=== PATIENT | female | born 1965 | race African-American/Black ===

== ENCOUNTER 2016-03-31 07:46 | Day surgery (SDC) | payer OTHER ==
[2016-03-30 08:48] VITALS: BMI 31.6
[~2016-03-31 07:46] MED LIST: DEXAMETHASONE SOD PHOSPHATE 10 MG/ML 1 ML VIAL IV ONE; HEPARIN SODIUM,PORCINE 5,000 UNIT/ML 1 ML VIAL SQ ONE; MIDAZOLAM 2 MG/2 ML VIAL IV PRN; ONDANSETRON 4 MG/2 ML VIAL IVP ONE; SCOPOLAMINE 1.5MG/72HR PATCH TRANSDERM ONE; ceFAZolin 2 GM in SODIUM CHLORIDE 0.9% 100 ML IVPB ONE
[2016-03-31 08:08] VITALS: RESP 16
[2016-03-31] MEDS: LACTATED RINGERS 1,000 ML IV SCH ×2 (08:12→13:38)
[2016-03-31] MEDS ORDERED: LIDOCAINE 1% 20 ML VIAL (10MG/ML) FOR IV START INTRADERMA ONE (08:13)
--- NOTE | 2016-03-31 09:03 | P.GSHP ---
History of Present Illness H&P Date: 03/31/16 Chief Complaint: Cholecystitis Patient here today for laparoscopic cholecystectomy. She's been having increased pain in the right upper quadrant with radiation of the back. She had a recent HIDA scan last year that showed a low ejection fraction of 16%. She has had previous ultrasounds showing no evidence of gallstones. Denies any change in the color of her skin urine or stool. No rectal bleeding or melena. No elevation of her liver enzymes. She does have chronic reflux symptoms. Past Medical History Past Medical History: Asthma, GERD/Reflux, Hyperlipidemia, Hypertension, Mitral Valve Prolapse (MVP), Thyroid Disorder Additional Past Medical History / Comment(s): mitral valve regurg., RUQ pain History of Any Multi-Drug Resistant Organisms: None Reported Past Surgical History: Breast Surgery, Hysterectomy, Orthopedic Surgery, Tubal Ligation Additional Past Surgical History / Comment(s): CARLY, breast reduction, arthroscopy knee Past Anesthesia/Blood Transfusion Reactions: No Reported Reaction Past Psychological History: Anxiety Smoking Status: Never smoker Past Alcohol Use History: Occasional Past Drug Use History: None Reported - Past Family History Mother Family Medical History: CVA/TIA, Hypertension Medications and Allergies Home Medications Medication Instructions Recorded Confirmed Type ALPRAZolam [ALPRAZolam] 0.25 mg PO BID PRN 05/11/14 03/31/16 History Enalapril Maleate [Enalapril 20 mg PO HS 05/11/14 03/31/16 History Maleate] L.acidoph/B.long/L.plant/B.lac 1 each PO QAM 05/11/14 03/31/16 History [Probiotic Acidophilus Beads] Levothyroxine Sodium [Synthroid] 50 mcg PO QAM 05/11/14 03/31/16 History Metoprolol Succinate (ER) [Toprol 50 mg PO QAM 05/11/14 03/31/16 History Xl] Omeprazole [PriLOSEC] 20 mg PO AC-BRKFST 05/11/14 03/31/16 History amLODIPine BESYLATE [Amlodipine 10 mg PO QAM 05/11/14 03/31/16 History Besylate] traMADol HCL [Tramadol HCl] 50 mg PO Q6H PRN 05/11/14 03/31/16 History Albuterol Inhaler [Ventolin Hfa 1 - 2 puff INHALATION Q6HR PRN 03/31/15 History Inhaler] Rosuvastatin Calcium [Crestor] 40 mg PO HS 03/30/16 03/31/16 History Triamterene-Hctz 37.5-25Mg 1 cap PO DAILY PRN 03/30/16 03/31/16 History [Dyazide 37.5-25 Capsule] Allergies Allergy/AdvReac Type Severity Reaction Status Date / Time sulfamethoxazole Allergy Rash/Hives Verified 03/31/16 08:15 [From Bactrim] trimethoprim [From Bactrim] Allergy Rash/Hives Verified 03/31/16 08:15 Surgical - Exam Vital Signs Temp Pulse Resp BP Pulse Ox 98.1 F 81 16 122/76 100 03/31/16 08:06 03/31/16 08:06 03/31/16 08:06 03/31/16 08:06 03/31/16 08:06 Physical exam: General: Well-developed, well-nourished HEENT: Normocephalic, sclerae nonicteric Abdomen: Nontender, nondistended Extremities: No edema Neuro: Alert and oriented Assessment and Plan (1) Biliary dyskinesia Narrative/Plan: We'll proceed with lap scopic cholecystectomy. The risks of bleeding, infection , biloma formation, common bile duct injury, retained common bile duct stone, persistent abdominal pain, persistent diarrhea were discussed. She understands wished to proceed. Status: Acute
[2016-03-31] MEDS ORDERED: ceFAZolin 1,000 MG VIAL ONE ×2 (09:27→11:29)
[2016-03-31] MEDS ORDERED: GLYCOPYRROLATE 0.2 MG/ML 2 ML VIAL ONE ×2 (09:27→11:29)
[2016-03-31] MEDS ORDERED: SODIUM CHLORIDE 0.9% 100 ML BAG ONE ×2 (09:27→11:29)
[2016-03-31] MEDS ORDERED: ePHEDrine 50 MG/ML 1 ML AMP ONE (09:27)
[2016-03-31] MEDS ORDERED: NEOSTIGMINE 1 MG/ML 10 ML VIAL ONE ×2 (09:27→11:29)
[2016-03-31] MEDS ORDERED: PHENYLEPHRINE-0.9% NACL SYG 1 MG/10 ML SYRINGE ONE (09:27)
[2016-03-31] MEDS ORDERED: fentaNYL (PF) 50 MCG/ML 2 ML AMP ONE ×2 (09:27→11:29)
[2016-03-31] MEDS ORDERED: MIDAZOLAM 2 MG/2 ML VIAL ONE ×2 (09:27→11:29)
[2016-03-31] MEDS ORDERED: SUCCINYLCHOLINE CHLORIDE VIAL 200 MG/10 ML VIAL IV ONE (09:27)
[2016-03-31] MEDS ORDERED: LIDOCAINE 1% INJ 10MG/ML (20 ML MDV) ONE (09:27)
[2016-03-31] MEDS ORDERED: PROPOFOL 10 MG/ML 20 ML VIAL IV ONE ×2 (09:27→11:29)
[2016-03-31] MEDS ORDERED: BUPIVACAIN-EPI 0.25%-1:200,000 30 ML VIAL SQ ONE ×2 (09:47→10:15)
[2016-03-31] MEDS ORDERED: LACTATED RINGERS 1,000 ML IV ONE (10:07)
[2016-03-31] MEDS: HYDROmorphone 1 MG/ML 1 ML SYRINGE IVP PRN ×2 (10:35→10:46)
[2016-03-31 10:39] VITALS: TEMP 98
[2016-03-31] MEDS ORDERED: NALOXONE 0.4 MG/ML 1 ML VIAL IV PRN (10:51)
[2016-03-31] MEDS ORDERED: HYDROcodone/APAP 5-325MG 1 EACH TAB PO PRN (10:51)
--- NOTE | 2016-03-31 10:53 | P.PCN ---
Date of Procedure: 03/31/16 Procedure(s) Performed: PREOPERATIVE DIAGNOSIS: Biliary dyskinesia POSTOPERATIVE DIAGNOSIS: Same PROCEDURE: Laparoscopic cholecystectomy SURGEON: Tim EBL: Minimal see anesthesia record ANESTHESIA: Gen. COMPLICATIONS: None OPERATIVE PROCEDURE: The patient was brought and placed on the operating room table in the supine position. The patient was placed under general anesthesia at that time. The abdomen was prepped and draped in the usual sterile fashion. A small vertical infraumbilical incision was made. The fascia was grasped with the Juarez forceps. The fascia was retracted anteriorly. The Veress needle was advanced into the peritoneal cavity. The saline drop test was normal. Insufflation took place up to 15 mmHg. A 5 mm optical trocar was advanced and the peritoneal cavity. 2 additional 5 mm trochars were placed in the right upper quadrant under direct visualization. A 10 mm trocar was advanced into the epigastric incision site. The gallbladder was retracted superiorly and laterally. The peritoneum overlying the infundibulum was bluntly dissected. The patient's cystic duct was visualized. The junction between the cystic duct common and hepatic duct was identified. The cystic duct was then divided after placement of 3 10 mm clips on the patient's side and one on the specimen side. The cystic artery was identified and clipped as well. A small vessel was seen along the gallbladder fossa and clipped as well. The gallbladder was then removed from the liver bed using electrocautery. The gallbladder was then removed from the epigastric trocar site with an Endo Catch bag. The gallbladder fossa was irrigated with saline. There was no evidence of any bleeding or biliary drainage seen. The fascia at the 10 mm site was closed using the [place] 0 Vicryl technique. The trochars were then removed. The skin at all 4 sites was closed using a 4-0 Monocryl stitch. At the end of this procedure the sponge and needle counts were correct. DISPOSITION: Stable to the recovery room
[2016-03-31] MEDS ORDERED: KETOROLAC 30 MG/ML 1 ML VIAL IVP ONE (11:16)
[2016-03-31] MEDS ORDERED: VECURONIUM 10 MG VIAL IV ONE (11:29)
[2016-03-31] MEDS ORDERED: SUCCINYLCHOLINE CHLORIDE 100 MG/5 ML SYR IV ONE (11:29)
[2016-03-31 14:58] VITALS: BP 106/71; PULSE 86
== END 2016-03-31 15:04 | disposition home or self-care (01) ==
LOC: OR 07:46
PROVIDERS: ATTEND Surgery
DX: K81.1 Chronic cholecystitis (principal); I10 Essential (primary) hypertension; E78.5 Hyperlipidemia, unspecified; J45.909 Unspecified asthma, uncomplicated; K21.9 Gastro-esophageal reflux disease without esophagitis; I34.1 Nonrheumatic mitral (valve) prolapse; E07.9 Disorder of thyroid, unspecified; Z88.2 Allergy status to sulfonamides; Z79.899 Other long term (current) drug therapy; Z82.49 Family history of ischemic heart disease and other diseases of the circulatory system
CPT/HCPCS: 47562; 88304; J2250; J0330; J1644; J1100; J2710; J2405; J0690; J2001; J3010; J1885; J1170; J2370; J2704

== ENCOUNTER → 2016-06-28 | Outpatient (CLI) | payer OTHER ==
[2016-06-28 11:06] LABS: Calcium 9.7 mg/dL (8.4-10.2); Potassium 4.2 mmol/L (3.5-5.1); Total Bilirubin 0.5 mg/dL (0.2-1.3); Total Protein 7.7 g/dL (6.3-8.2)
== END ==
LOC: LABWHC1 10:06
PROVIDERS: ATTEND Internal Medicine Clinical Cardiac Electrophysiology
DX: E00-E89 Endocrine, nutritional and metabolic diseases (principal)
CPT/HCPCS: 36415; 80053; 80061

== ENCOUNTER → 2016-07-07 | Outpatient (CLI) | payer OTHER ==
--- NOTE | 2016-07-08 11:52 | US ---
EXAMINATION TYPE: US kidneys/renal and bladder DATE OF EXAM: 07/07/2016 4:08 PM COMPARISON: NONE CLINICAL HISTORY: Abn Kidney Function Test R94.4. EXAM MEASUREMENTS: Right Kidney: 9.5 x 4.9 x 4.2 cm Left Kidney: 9.5 x 5.5 x 4.5 cm Right Kidney: No hydronephrosis or masses seen Left Kidney: No hydronephrosis or masses seen Bladder: wnl There is no evidence for hydronephrosis at this point in time. No nephrolithiasis is seen. No cynthia s are identified. The urinary bladder is anechoic. Bilateral ureteral jets are seen. IMPRESSION: Renal sizes as described
== END | disposition home or self-care (01) ==
LOC: RADUSMAIN 15:36
PROVIDERS: ATTEND Internal Medicine Geriatric Medicine
DX: R94.4 Abnormal results of kidney function studies (principal)
CPT/HCPCS: 76770

== ENCOUNTER → 2016-07-24 | Outpatient (CLI) | payer OTHER ==
--- NOTE | 2016-07-24 15:02 | CT ---
EXAMINATION TYPE: CT chest wo con DATE OF EXAM: 07/24/2016 2:43 PM COMPARISON: NONE HISTORY: Patient complains of difficulty breathing. CT DLP: 254 mGycm. Automated Exposure Control for Dose Reduction was Utilized. TECHNIQUE: CT scan of the thorax is performed without IV contrast. High-resolution protocol with 10 mm sequences obtained in supine and prone technique. FINDINGS: LUNGS: The lungs are grossly clear, there is no concerning groundglass opacity or focal consolidation . There is minimal linear scarring in the left lower lobe centrally near diaphragm. No suspicious per ipheral reticulation or fibrosis is seen.. There is no pleural effusion or pneumothorax seen bilater ally. No large intraparenchymal mass. No significant bronchiectasis. MEDIASTINUM: Lack of IV contrast is noted to limit evaluation for mediastinal and especially hilar ad enopathy. There are no definitive greater than 1 cm hilar or mediastinal lymph nodes. No pericardia l effusion is seen. Heart size is upper limits of normal. Coronary artery calcification is noted. OTHER: There are rim calcified fat density structures in both breasts, right greater than left in siz e, could reflect large dystrophic calcifications from prior trauma or breast procedures. Cholecystectomy clips are noted. IMPRESSION: No significant acute or chronic pulmonary disease.
== END | disposition home or self-care (01) ==
LOC: RADCTMAIN 14:13
PROVIDERS: ATTEND Internal Medicine
DX: R06.02 Shortness of breath (principal); R05 Cough
CPT/HCPCS: 71250

== ENCOUNTER 2017-02-23 10:26 | Day surgery (SDC) | payer OTHER ==
[2017-02-23 11:36] VITALS: RESP 15; TEMP 97.8
[2017-02-23] MEDS ORDERED: LACTATED RINGERS 1,000 ML IV SCH (11:45)
--- NOTE | 2017-02-23 11:53 | P.GSHP ---
History of Present Illness H&P Date: 02/23/17 Chief Complaint: GERD, history of colon polyps 51-year-old female known to our service. She has complaints of chronic reflux. Last upper endoscopy 2014 showed gastritis and a small hernia. Unsure of the timing of her last colonoscopy. No bowel related complaints. Past Medical History Past Medical History: Asthma, GERD/Reflux, Hyperlipidemia, Hypertension, Mitral Valve Prolapse (MVP), Thyroid Disorder Additional Past Medical History / Comment(s): mitral valve regurg., RUQ pain History of Any Multi-Drug Resistant Organisms: None Reported Past Surgical History: Breast Surgery, Hysterectomy, Orthopedic Surgery, Tubal Ligation Additional Past Surgical History / Comment(s): CARLY, breast reduction, arthroscopy knee Past Anesthesia/Blood Transfusion Reactions: No Reported Reaction Past Psychological History: Anxiety Smoking Status: Never smoker Past Alcohol Use History: Occasional Past Drug Use History: None Reported - Past Family History Mother Family Medical History: CVA/TIA, Hypertension Medications and Allergies Home Medications Medication Instructions Recorded Confirmed Type ALPRAZolam [ALPRAZolam] 0.25 mg PO BID PRN 05/11/14 02/23/17 History Enalapril Maleate [Enalapril 20 mg PO HS 05/11/14 03/31/16 History Maleate] L.acidoph/B.long/L.plant/B.lac 1 each PO QA 05/11/14 02/23/17 History [Probiotic Acidophilus Beads] Levothyroxine Sodium [Synthroid] 50 mcg PO QAM 05/11/14 02/23/17 History Metoprolol Succinate (ER) [Toprol 50 mg PO QAM 05/11/14 02/23/17 History Xl] Omeprazole [PriLOSEC] 20 mg PO AC-BRKFST 05/11/14 02/23/17 History amLODIPine BESYLATE [Amlodipine 10 mg PO QAM 05/11/14 02/23/17 History Besylate] traMADol HCL [Tramadol HCl] 50 mg PO Q6H PRN 05/11/14 02/23/17 History Albuterol Inhaler [Ventolin Hfa 1 - 2 puff INHALATION Q6HR PRN 03/31/15 History Inhaler] Rosuvastatin Calcium [Crestor] 40 mg PO HS 03/30/16 02/23/17 History Triamterene-Hctz 37.5-25Mg 1 cap PO DAILY PRN 03/30/16 02/23/17 History [Dyazide 37.5-25 Capsule] Hydrocodone/Acetaminophen [[place] 1 - 2 each PO Q4HR PRN #30 tab 03/31/16 Rx 5-325] Enalapril [Vasotec] 10 mg PO DAILY 02/23/17 02/23/17 History amLODIPine [Norvasc] 5 mg PO DAILY 02/23/17 02/23/17 History Allergies Allergy/AdvReac Type Severity Reaction Status Date / Time sulfamethoxazole Allergy Rash/Hives Verified 02/23/17 11:44 [From Bactrim] trimethoprim [From Bactrim] Allergy Rash/Hives Verified 02/23/17 11:44 Surgical - Exam Vital Signs Temp Pulse Resp BP Pulse Ox 97.8 F 74 15 130/80 98 02/23/17 11:34 02/23/17 11:34 02/23/17 11:34 02/23/17 11:34 02/23/17 11:34 Physical exam: General: Well-developed, well-nourished HEENT: Normocephalic, sclerae nonicteric Abdomen: Nontender, nondistended Extremities: No edema Neuro: Alert and oriented Assessment and Plan (1) GERD (gastroesophageal reflux disease) Narrative/Plan: Will proceed with upper and lower endoscopy at this time. Current Visit: Yes Status: Acute Code(s): K21.9 - GASTRO-ESOPHAGEAL REFLUX DISEASE WITHOUT ESOPHAGITIS SNOMED Code(s): 371899632
[2017-02-23] MEDS ORDERED: LIDOCAINE 1% INJ 10MG/ML (20 ML MDV) ONE (12:00)
[2017-02-23] MEDS ORDERED: PROPOFOL 10 MG/ML 20 ML VIAL IV ONE (12:00)
[2017-02-23 12:45] VITALS: BP 113/80; PULSE 74
--- NOTE | 2017-03-22 13:50 | P.PCN ---
Date of Procedure: 02/23/17 Procedure(s) Performed: PREOPERATIVE DIAGNOSIS: GERD, screening, colon polyps POSTOPERATIVE DIAGNOSIS: Duodenitis, gastritis, hiatal hernia, diverticulosis PROCEDURE: 1. EGD with biopsy 2. Colonoscopy ANESTHESIA: MAC SURGEON: Surendra Dumont M.D. SPECIMENS: Duodenum, antrum ENDOSCOPIC PROCEDURE: The patient was on the endoscopy table in the left decubitus position. The Olympus gastroscope was inserted into the oropharynx and passed under direct visualization to the region of the third portion of the duodenum. From that point the scope was slowly withdrawn inspecting all surfaces carefully. There was mild duodenitis present. A biopsy of the duodenum took place. The pylorus was widely patent. The stomach was carefully inspected. There was mild gastritis present. A biopsy of the antrum took place to rule out H. pylori. Retroflexion revealed a small sliding hiatal hernia. The esophagus was then carefully examined. There were no neoplastic inflammatory or polypoid lesions throughout the visualized esophagus. The patient was kept on the endoscopy table in the left decubitus position. The Olympus colonoscope was inserted into the anus and passed under direct visualization to the base of the cecum. The appendiceal orifice was visualized. From that point the scope was slowly withdrawn inspecting all surfaces carefully. There were no neoplastic inflammatory or polypoid lesions throughout the cecum, ascending, transverse, descending, sigmoid and rectum. There was mild diverticulosis noted. Digital rectal examination was normal. The patient was taken to the recovery room in stable condition per anesthesia guidelines. RECOMMENDATIONS: Await biopsy results. Increase fiber. Follow-up colonoscopy 5 years.
== END 2017-02-23 13:09 | disposition home or self-care (01) ==
LOC: ORWHC2ENDO 10:26
PROVIDERS: ATTEND Surgery
DX: K21.9 Gastro-esophageal reflux disease without esophagitis (principal); Z12.11 Encounter for screening for malignant neoplasm of colon; Z86.010 Personal history of colon polyps; K57.30 Diverticulosis of large intestine without perforation or abscess without bleeding; K29.50 Unspecified chronic gastritis without bleeding; K44.9 Diaphragmatic hernia without obstruction or gangrene; K29.80 Duodenitis without bleeding; E07.9 Disorder of thyroid, unspecified; I34.1 Nonrheumatic mitral (valve) prolapse; J45.909 Unspecified asthma, uncomplicated; I10 Essential (primary) hypertension; E78.5 Hyperlipidemia, unspecified; F41.9 Anxiety disorder, unspecified; Z88.2 Allergy status to sulfonamides; Z79.899 Other long term (current) drug therapy; Z82.49 Family history of ischemic heart disease and other diseases of the circulatory system
CPT/HCPCS: 88305; 88342; 45378; 43239; J2001; J2704

== ENCOUNTER → 2017-04-19 | Outpatient (CLI) | payer OTHER ==
[2017-04-19 09:57] LABS: Basophils % (A) 1 %; Eosinophils # (A) 0.1 k/uL (0-0.7); Eosinophils % (A) 2 %; HCT 39.9 % (34.0-46.0); HGB 12.7 gm/dL (11.4-16.0); Lymphocytes # (A) 2.6 k/uL (1.0-4.8); Lymphocytes % (A) 51 %; MCH 30.2 pg (25.0-35.0); MCHC 31.8 g/dL (31.0-37.0); MCV 94.9 fL (80.0-100.0); Mean Platelet Volume 7.1; Monocytes # (A) 0.3 k/uL (0-1.0); Monocytes % (A) 7 %; Neutrophils % (A) 37 %; Platelet Count 278 k/uL (150-450); RBC 4.21 m/uL (3.80-5.40); RDW 13.4 % (11.5-15.5); WBC 5.2 k/uL (3.8-10.6)
[2017-04-19 10:02] LABS: Albumin 4.4 g/dL (3.5-5.0); Calcium 9.8 mg/dL (8.4-10.2); Potassium 4.1 mmol/L (3.5-5.1); Total Bilirubin 0.3 mg/dL (0.2-1.3); Total Protein 7.1 g/dL (6.3-8.2)
[2017-04-19 10:14] LABS: T4, Free (Free Thyroxine) 0.95 ng/dL (0.78-2.19)
[2017-04-19 10:16] LABS: Large Platelets Present
[2017-04-19 17:15] LABS: Hemoglobin A1C 5.8 % (4.0-6.0)
== END | disposition home or self-care (01) ==
LOC: LABWHC1 09:13
PROVIDERS: ATTEND Internal Medicine Geriatric Medicine
DX: E03.9 Hypothyroidism, unspecified (principal); E78.00 Pure hypercholesterolemia, unspecified; K21.9 Gastro-esophageal reflux disease without esophagitis; N18.9 Chronic kidney disease, unspecified; R73.9 Hyperglycemia, unspecified
CPT/HCPCS: 36415; 80053; 80061; 83036; 84439; 84443; 85025

== ENCOUNTER → 2017-05-11 | Outpatient (CLI) | payer OTHER ==
--- NOTE | 2017-05-11 18:01 | BD ---
EXAMINATION TYPE: MG DEXA axial skeleton. DATE OF EXAM: 05/11/2017 COMPARISON: NONE CLINICAL HISTORY: 52 YR OLD FEMALE....ICD-10 CODE: M81.0 AGE RELATED OSTEOPOROSIS. Height: 62 Weight: 203 FRAX RISK QUESTIONS: Alcohol (3 or more units per day): NO Family History (Parent hip fracture): NO Glucocorticoids (More than 3mos): NO (Ex: prednisone, prednisolone, methylprednisolone, dexamethasone, and hydrocortisone). History of Fracture in Adulthood: NO Secondary Osteoporosis: NO 1. Type 1 Diabetes: NO 2. Hyperthyroidism: NO 3. Menopause before 45: NO 4. Malnutrition: NO 5. Chronic liver disease: NO Rheumatoid Arthritis: NO Current Tobacco Use: NO RISK FACTORS HISTORY OF: Family History of Osteoporosis: YES, AUNT Active: YES Diet low in dairy products/other sources of calcium: YES A BIT LOW Postmenopausal woman: HYST AT 33 YRS OLD, EXPERIENCING MENOPAUSAL SYMPTOMS NOW Hyperparathyroidism: NO Adrenal Insufficiency: NO MEDICATIONS: Prednisone or other steroids: ASTHMA INHALER, HAS NOT USED IN VERY LONG TIME Thyroid Medications: YES, SYNTHROID How Lon-20 YRS Additional Medications: BP MEDS, XANAX PRN, PRILOSEC, CRESTOR, VIT D, Additional History: SLIGHT ASTHMA, CHECKING FOR DIABETES, HYPERTENSION, EXAM MEASUREMENTS: Bone mineral densitometry was performed using the Zopim System. Bone mineral density as measured about the Lumbar spine is: ----- L1-L4(G/cm2): 1.269 T Score Values are as follows: ----- L1: -0.3 ----- L2: 0.2 ----- L3: 1.2 ----- L4: 1.3 ----- L1-L4: 0.7 Bone mineral density FIRST BONE DENSITY TEST.......BASELINE STUDY Bone mineral density about the R hip (g/cm2): 1.078 Bone mineral density about the L hip (g/cm2): 1.016 T Score values are as follows: -----R Neck: -0.3 -----L Neck: -0.6 -----R Total: 0.6 -----L Total: 0.1 Bone mineral density BASELINE STUDY FRAX%S: THERE IS A 2.1% CHANCE OF A MAJOR OSTEOPOROTIC FX AND A 01.% FOR HIP FX....PROBABILITY OF FX IN 10 YRS TIME IMPRESSION: Normal (Values between +1 and -1 indicate normal bone mass). Consider repeating this study in 5 year s or sooner if there is some new clinical indication. NOTE: T-SCORE=SD OF THE YOUNG ADULT MEAN.
--- NOTE | 2017-05-14 11:08 | MM ---
Reason for exam: screening (asymptomatic). Last mammogram was performed 2 years and 5 months ago. History: Patient is postmenopausal. Reductions of both breasts, 2008. Physical Findings: A clinical breast exam by your physician is recommended on an annual basis and results should be correlated with mammographic findings. MG Screening Mammo w CAD Bilateral CC and MLO view(s) were taken. Prior study comparison: December 18, 2014, bilateral MG screening mammo w CAD. October 22, 2012, mammogram, performed at [facility]. The breast tissue is almost entirely fat. Finding: There are typically benign round, regional and grouped calcifications in the left breast. There is no discrete abnormality. Large dystrophic calcifications bilaterally. ASSESSMENT: Benign, BI-RAD 2 RECOMMENDATION: Routine screening mammogram of both breasts in 1 year.
== END | disposition home or self-care (01) ==
LOC: RADMAMWWP 07:21
PROVIDERS: ATTEND Internal Medicine Geriatric Medicine
DX: Z12.31 Encounter for screening mammogram for malignant neoplasm of breast (principal); M81.0 Age-related osteoporosis without current pathological fracture
CPT/HCPCS: 77067; 77080

== ENCOUNTER → 2017-06-15 | Outpatient (CLI) | payer OTHER ==
[2017-06-15 09:04] LABS: ALT 26 U/L (9-52); AST 25 U/L (14-36); Albumin 4.2 g/dL (3.5-5.0); Alkaline Phosphatase 101 U/L (38-126); Anion Gap 13 mmol/L; Blood Urea Nitrogen 9 mg/dL (7-17); Carbon Dioxide 26 mmol/L (22-30); Chloride 107 mmol/L (98-107); Glucose 93 mg/dL (74-99); Potassium 3.9 mmol/L (3.5-5.1); Sodium 146 mmol/L (137-145); Total Bilirubin 0.4 mg/dL (0.2-1.3)
[2017-06-15 10:06] LABS: Creatinine,Urine Random 281.1 mg/dL
== END ==
LOC: LABWHC1 08:28
PROVIDERS: ATTEND Nurse Practitioner Family
DX: N17.9 Acute kidney failure, unspecified (principal)
CPT/HCPCS: 36415; 80053; 82570; 84156

== ENCOUNTER 2018-11-08 07:53 | Emergency (ER) | payer OTHER ==
[2018-11-08 08:30] LABS: Amorphous Sediment,Urine Rare /hpf; Appearance,Urine Cloudy (Clear); Bacteria,Urine Occasional /hpf; Bilirubin,Urine Negative (Negative); Blood,Urine Moderate (Negative); Color,Urine Yellow; Glucose,Urine (UA) Negative (Negative); Ketones,Urine Negative (Negative); Leukocyte Esterase,Urine Negative (Negative); Mucus,Urine Occasional /hpf; Nitrite,Urine Negative (Negative); PH, Urine 5.5 (5.0-8.0); Protein,Urine 1+ (Negative); RBC,Urine 3 /hpf (0-5); Specific Gravity,Urine 1.023 (1.001-1.035); Squamous Epithelial Cell,Urine 8 /hpf (0-4); Urobilinogen,Urine <2.0 mg/dL (<2.0); WBC,Urine 1 /hpf (0-5)
[2018-11-08] MEDS ORDERED: KETOROLAC 30 MG/ML 1 ML VIAL IVP STA (08:34)
[2018-11-08] MEDS ORDERED: SODIUM CHLORIDE 0.9% 500 ML 500 ML IV STA (08:34)
[2018-11-08] MEDS ORDERED: ASPIRIN 81 MG PO STA (08:42)
[2018-11-08 09:24] LABS: Basophils % (A) 1 %; Eosinophils # (A) 0.2 k/uL (0-0.7); Eosinophils % (A) 3 %; HCT 40.4 % (34.0-46.0); HGB 13.3 gm/dL (11.4-16.0); Lymphocytes # (A) 1.6 k/uL (1.0-4.8); Lymphocytes % (A) 22 %; MCHC 32.8 g/dL (31.0-37.0); MCV 91.3 fL (80.0-100.0); Mean Platelet Volume 7.4; Monocytes # (A) 0.5 k/uL (0-1.0); Monocytes % (A) 7 %; Neutrophils # (A) 4.8 k/uL (1.3-7.7); Neutrophils % (A) 66 %; Platelet Count 250 k/uL (150-450); RBC 4.42 m/uL (3.80-5.40); RDW 15.1 % (11.5-15.5); WBC 7.2 k/uL (3.8-10.6)
--- NOTE | 2018-11-08 09:27 | ED ---
General Adult HPI - General Chief complaint: Urogenital Stated complaint: Infection Time Seen by Provider: 11/08/18 08:00 Source: patient, RN notes reviewed Mode of arrival: ambulatory Limitations: no limitations - History of Present Illness Initial comments: This is a 53-year-old female presents emergency Department complaining of right lower quadrant abdominal pain and some urinary frequency. Patient states it started a couple days ago and it seems to be progressing. Patient states the pain is reproducible with palpation. Patient states there is no dysuria chest urinary frequency. Patient denies any hematuria. Patient denies any history of kidney stone. Patient does not have her appendix out. Patient denies any nausea vomiting or diarrhea. Patient denies any chest pain. Patient denies any difficulty breathing. Patient denies any fever but states she does have the chills. - Related Data Home Medications Medication Instructions Recorded Confirmed ALPRAZolam 0.25 mg PO BID PRN 05/11/14 11/08/18 Levothyroxine Sodium [Synthroid] 50 mcg PO QAM 05/11/14 11/08/18 Metoprolol Succinate (ER) [Toprol 50 mg PO QAM 05/11/14 11/08/18 Xl] traMADol HCL [Tramadol HCl] 50 mg PO Q6H PRN 05/11/14 11/08/18 Albuterol Inhaler [Ventolin Hfa 1 - 2 puff INHALATION Q6HR PRN 03/31/15 11/08/18 Inhaler] Rosuvastatin Calcium [Crestor] 40 mg PO HS 03/30/16 11/08/18 Enalapril [Vasotec] 10 mg PO HS 02/23/17 11/08/18 Fluticasone Nasal [place] [Flonase 1 spray EA NOSTRIL DAILY PRN 11/08/18 11/08/18 Nasal [place]] Previous Rx's Medication Instructions Recorded Ketorolac [Toradol] 10 mg PO Q6HR #15 tab 11/08/18 Tamsulosin [Flomax] 0.4 mg PO DAILY #10 cap 11/08/18 Allergies Allergy/AdvReac Type Severity Reaction Status Date / Time sulfamethoxazole Allergy Rash/Hives Verified 11/08/18 09:02 [From Bactrim] trimethoprim [From Bactrim] Allergy Rash/Hives Verified 11/08/18 09:02 Review of Systems ROS Statement: Those systems with pertinent positive or pertinent negative responses have been documented in the HPI. ROS Other: All systems not noted in ROS Statement are negative. Past Medical History Past Medical History: Asthma, GERD/Reflux, Hyperlipidemia, Hypertension, Mitral Valve Prolapse (MVP), Thyroid Disorder Additional Past Medical History / Comment(s): mitral valve regurg., RUQ pain History of Any Multi-Drug Resistant Organisms: None Reported Past Surgical History: Breast Surgery, Hysterectomy, Orthopedic Surgery, Tubal Ligation Additional Past Surgical History / Comment(s): CARLY, breast reduction, arthroscopy knee Past Anesthesia/Blood Transfusion Reactions: No Reported Reaction Past Psychological History: Anxiety Smoking Status: Never smoker Past Alcohol Use History: Occasional Past Drug Use History: None Reported - Past Family History Mother Family Medical History: CVA/TIA, Hypertension General Exam - General Exam Comments Initial Comments: GENERAL: Patient is well-developed and well-nourished. Patient is nontoxic and well-hydr ated and is in mild distress. ENT: Neck is soft and supple. No significant lymphadenopathy is noted. Oropharynx is clear. Moist mucous membranes. Neck has full range of motion without eliciting any pain. EYES: The sclera were anicteric and conjunctiva were pink and moist. Extraocular movements were intact and pupils were equal round and reactive to light. Eyelids were unremarkable. PULMONARY: Unlabored respirations. Good breath sounds bilaterally. No audible rales rhonchi or wheezing was noted. CARDIOVASCULAR: There is a regular rate and rhythm without any murmurs gallops or rubs. ABDOMEN: Right lower abd pain. No rebound or guarding SKIN: Skin is clear with no lesions or rashes and otherwise unremarkable. NEUROLOGIC: Patient is alert and oriented x3. Cranial nerves II through XII are grossly intact. Motor and sensory are also intact. Normal speech, volume and content. Symmetrical smile. MUSCULOSKELETAL: Normal extremities with adequate strength and full range of motion. LYMPHATICS: No significant lymphadenopathy is noted PSYCHIATRIC: Normal psychiatric evaluation. Limitations: no limitations Course Vital Signs 11/08/18 11/08/18 11/08/18 08:00 09:02 10:30 Temperature 98 F Pulse Rate 80 75 65 Respiratory 16 18 20 Rate Blood Pressure 165/93 146/90 145/90 O2 Sat by Pulse 100 99 99 Oximetry Medical Decision Making - Medical Decision Making CT of the abdomen pelvis shows a kidney stone in the ureter with some hydroureter and hydronephrosis. - Lab Data Result diagrams: 11/08/18 09:05 11/08/18 09:05 Lab Results 11/08/18 11/08/18 11/08/18 Range/Units 08:10 09:05 09:05 WBC 7.2 (3.8-10.6) k/uL RBC 4.42 (3.80-5.40) m/uL Hgb 13.3 (11.4-16.0) gm/dL Hct 40.4 (34.0-46.0) % MCV 91.3 (80.0-100.0) fL MCH 30.0 (25.0-35.0) pg MCHC 32.8 (31.0-37.0) g/dL RDW 15.1 (11.5-15.5) % Plt Count 250 (150-450) k/uL Neutrophils % 66 % Lymphocytes % 22 % Monocytes % 7 % Eosinophils % 3 % Basophils % 1 % Neutrophils # 4.8 (1.3-7.7) k/uL Lymphocytes # 1.6 (1.0-4.8) k/uL Monocytes # 0.5 (0-1.0) k/uL Eosinophils # 0.2 (0-0.7) k/uL Basophils # 0.0 (0-0.2) k/uL Sodium 141 (137-145) mmol/L Potassium 3.9 (3.5-5.1) mmol/L Chloride 105 (98-107) mmol/L Carbon Dioxide 28 (22-30) mmol/L Anion Gap 8 mmol/L BUN 17 (7-17) mg/dL Creatinine 1.51 H (0.52-1.04) mg/dL Est GFR (CKD-EPI)AfAm 45 (>60 ml/min/1.73 sqM) Est GFR (CKD-EPI)NonAf 39 (>60 ml/min/1.73 sqM) Glucose 96 (74-99) mg/dL Calcium 9.6 (8.4-10.2) mg/dL Total Bilirubin 0.6 (0.2-1.3) mg/dL AST 30 (14-36) U/L ALT 29 (9-52) U/L Alkaline Phosphatase 100 (38-126) U/L Total Protein 7.4 (6.3-8.2) g/dL Albumin 4.4 (3.5-5.0) g/dL Amylase 84 (30-110) U/L Lipase 94 (23-300) U/L Urine Color Yellow Urine Appearance Cloudy H (Clear) Urine pH 5.5 (5.0-8.0) Ur Specific [place] 1.023 (1.001-1.035) Urine Protein 1+ H (Negative) Urine Glucose (UA) Negative (Negative) Urine Ketones Negative (Negative) Urine Blood Moderate H (Negative) Urine Nitrite Negative (Negative) Urine Bilirubin Negative (Negative) Urine Urobilinogen <2.0 (<2.0) mg/dL Ur Leukocyte Esterase Negative (Negative) Urine RBC 3 (0-5) /hpf Urine WBC 1 (0-5) /hpf Ur Squamous Epith Cells 8 H (0-4) /hpf Amorphous Sediment Rare H (None) /hpf Urine Bacteria Occasional H (None) /hpf Urine Mucus Occasional H (None) /hpf Disposition Clinical Impression: Kidney stone Disposition: HOME SELF-CARE Condition: Good Instructions (If sedation given, give patient instructions): Kidney Stones (ED) Prescriptions: Tamsulosin [Flomax] 0.4 mg PO DAILY #10 cap Ketorolac [Toradol] 10 mg PO Q6HR #15 tab Is patient prescribed a controlled substance at d/c from ED?: No Referrals: Keshawn Mireles MD [Primary Care Provider] - 1-2 days Time of Disposition: 12:12
[2018-11-08 09:34] LABS: Albumin 4.4 g/dL (3.5-5.0); Calcium 9.6 mg/dL (8.4-10.2); Potassium 3.9 mmol/L (3.5-5.1); Total Bilirubin 0.6 mg/dL (0.2-1.3); Total Protein 7.4 g/dL (6.3-8.2)
--- NOTE | 2018-11-08 10:31 | CT ---
EXAMINATION TYPE: CT abdomen pelvis wo con DATE OF EXAM: 11/08/2018 COMPARISON: None HISTORY: Pain CT DLP: 821 mGycm Automated exposure control for dose reduction was used. TECHNIQUE: Helical acquisition of images was performed from the lung bases through the pelvis. FINDINGS: LUNG BASES: No significant abnormality is appreciated. LIVER/GB: No significant abnormality is appreciated. Gallbladder surgically absent. PANCREAS: No significant abnormality is seen. SPLEEN: No significant abnormality is seen. ADRENALS: No significant abnormality is seen. KIDNEYS: Mild right-sided hydronephrosis, renal edema and perinephric stranding with right-sided hydr oureter from 0.5 cm calculus at the right UVJ. Additional tiny calculus is seen at the posterior aspe ct of the right mid ureter on axial image 45 measuring 3 mm. No left-sided renal or ureteral calculi. Low-attenuation structures within the bilateral kidneys with the largest seen in the inferior pole o n the right measuring 2.3 cm. FREE AIR: No free air is visualized RETROPERITONEAL ADENOPATHY: None visualized REPRODUCTIVE ORGANS: No significant abnormality is seen URINARY BLADDER: No significant abnormality is seen. PELVIC ADENOPATHY: None visualized. OSSEOUS STRUCTURES: No significant abnormality is seen. BOWEL: No significant abnormality is seen. IMPRESSION: 0.5 CM RIGHT UVJ CALCULUS CAUSING MILD OBSTRUCTIVE UROPATHY. ADDITIONAL TINY CALCULUS IS SEEN IN THE RIGHT MID URETER. SMALL BILATERAL RENAL CYSTS.
[2018-11-08 12:47] VITALS: BP 155/89; PULSE 70; RESP 18; TEMP 97.6
== END 2018-11-08 12:47 | disposition home or self-care (01) ==
LOC: EC 07:53
DX: N13.2 Hydronephrosis with renal and ureteral calculous obstruction (principal); J45.909 Unspecified asthma, uncomplicated; E78.5 Hyperlipidemia, unspecified; I10 Essential (primary) hypertension; E07.9 Disorder of thyroid, unspecified; Z79.899 Other long term (current) drug therapy; Z88.2 Allergy status to sulfonamides; Z98.51 Tubal ligation status
CPT/HCPCS: 36415; 80053; 82150; 83690; 85025; 81001; 74176; 99284; 96374; J1885

== ENCOUNTER → 2020-05-12 | Outpatient (CLI) | payer OTHER ==
[2020-05-12 16:12] LABS: HGB 13.3 g/dL (12.0-15.0); MCH 29.8 pg (27.0-32.0); MCHC 31.7 g/dL (32.0-37.0); Mean Platelet Volume 10.2 fL (9.5-12.2); Platelet Count 255 X 10*3/uL (140-440); RBC 4.47 X 10*6/uL (4.10-5.20); RDW 14.8 % (11.5-14.5); WBC 5.86 X 10*3/uL (4.50-10.00)
[2020-05-12 16:40] LABS: African American GFR (CKD) 64.5 (60.0-200.0); Albumin 4.9 g/dL (3.80-4.90); Albumin/Globulin Ratio 2.33 (1.60-3.17); Anion Gap 6.5 mmol/L (4.00-12.00); BUN/Creat Ratio 17.27 Ratio (12.00-20.00); Calcium 9.4 mg/dL (8.7-10.3); Carbon Dioxide 28.5 mmol/L (21.6-31.8); Chol/HDL Ratio 3.17; Globulin 2.1 g/dL (1.6-3.3); LDL Cholesterol,Calculated 118.8 mg/dL (0.0-131.0); Magnesium 2.2 mg/dL (1.5-2.4); Non-African American GFR(CKD) 55.7 (60.0-200.0); Potassium 4.4 mmol/L (3.5-5.5); Total Bilirubin 0.5 mg/dL (0.3-1.2); VLDL Calculation 20.2 mg/dL (5.00-40.00)
== END | disposition home or self-care (01) ==
LOC: LABWHC1 10:22
PROVIDERS: ATTEND Nurse Practitioner Adult Health
DX: E03.9 Hypothyroidism, unspecified (principal); I10 Essential (primary) hypertension; E78.5 Hyperlipidemia, unspecified
CPT/HCPCS: 36415; 80053; 80061; 83735; 84443; 84481; 85027

== ENCOUNTER → 2021-03-11 | Outpatient (CLI) | payer OTHER ==
--- NOTE | 2021-03-14 09:42 | MM ---
Reason for exam: screening (asymptomatic). Last mammogram was performed 3 years and 10 months ago. History: Patient is postmenopausal. Reductions of both breasts, 2008. Physical Findings: A clinical breast exam by your physician is recommended on an annual basis and results should be correlated with mammographic findings. MG 3D Screening Mammo W/Cad Bilateral CC and MLO view(s) were taken. Prior study comparison: May 11, 2017, bilateral MG screening mammo w CAD. December 18, 2014, bilateral MG screening mammo w CAD. There are scattered fibroglandular densities. Finding: There are large dystrophic calcifications in both breasts. There is a chronic nodularity bilaterally, medial aspect, greater in the left breast. There is no discrete abnormality. ASSESSMENT: Benign, BI-RAD 2 RECOMMENDATION: Routine screening mammogram of both breasts in 1 year.
== END | disposition home or self-care (01) ==
LOC: RADMAMWWP 09:30
PROVIDERS: ATTEND Internal Medicine Geriatric Medicine
DX: Z12.31 Encounter for screening mammogram for malignant neoplasm of breast (principal); Z78.0 Asymptomatic menopausal state
CPT/HCPCS: 77063; 77067

== ENCOUNTER 2023-03-13 08:59 | Day surgery (SDC) | payer OTHER ==
[~2023-03-13 08:59] MED LIST changes: -DEXAMETHASONE SOD PHOSPHATE 10 MG/ML 1 ML VIAL IV ONE; -HEPARIN SODIUM,PORCINE 5,000 UNIT/ML 1 ML VIAL SQ ONE; +LIDOCAINE 1% (10MG/ML) FOR IV START INTRADERMA PRN; -MIDAZOLAM 2 MG/2 ML VIAL IV PRN; -ONDANSETRON 4 MG/2 ML VIAL IVP ONE; -SCOPOLAMINE 1.5MG/72HR PATCH TRANSDERM ONE; -ceFAZolin 2 GM in SODIUM CHLORIDE 0.9% 100 ML IVPB ONE
[2023-03-13] MEDS: LACTATED RINGERS 1,000 ML IV SCH ×2 (09:32→09:40)
[2023-03-13 09:35] VITALS: TEMP 97.3
[2023-03-13 09:35] LABS: Glucose,Whole Blood 88 mg/dL (70-110)
[2023-03-13] MEDS ORDERED: LIDOCAINE 1% INJ 10MG/ML (20 ML MDV) ONE (09:42)
[2023-03-13] MEDS ORDERED: PROPOFOL 10 MG/ML 20 ML VIAL IV ONE (09:42)
--- NOTE | 2023-03-13 09:43 | P.GSHP ---
History of Present Illness H&P Date: 03/13/23 Chief Complaint: GERD 58-year-old female with history of chronic reflux symptoms. Patient was on omeprazole daily. She is now on Protonix daily. Even with her antiacids she is symptomatic at times. No dysphagia. Last EGD 6 years ago. She is also due for colonoscopy but this was not scheduled today. Past Medical History Past Medical History: Asthma, Diabetes Mellitus, GERD/Reflux, Hyperlipidemia, Hypertension, Mitral Valve Prolapse (MVP), Thyroid Disorder Additional Past Medical History / Comment(s): mitral valve regurg., gastritis & GERD over Thanksgiving, hx. of fast heart rate, borderline diabetic, had some kidney issues in the past related to meds but resolved after meds adjusted History of Any Multi-Drug Resistant Organisms: None Reported Past Surgical History: Breast Surgery, Hysterectomy, Orthopedic Surgery, Tubal Ligation Additional Past Surgical History / Comment(s): CARLY, breast reduction, arthroscopy knee Past Anesthesia/Blood Transfusion Reactions: No Reported Reaction Smoking Status: Never smoker - Past Family History Mother Family Medical History: CVA/TIA, Hypertension Medications and Allergies Home Medications Medication Instructions Recorded Confirmed Type ALPRAZolam 0.25 mg PO BID PRN 05/11/14 03/13/23 History Levothyroxine Sodium [Synthroid] 50 mcg PO QAM 05/11/14 03/13/23 History Metoprolol Succinate (ER) [Toprol 25 mg PO QAM 05/11/14 03/13/23 History Xl] traMADol HCL [Tramadol HCl] 50 mg PO Q6H PRN 05/11/14 03/13/23 History Albuterol Inhaler [Ventolin Hfa 1 - 2 puff INHALATION Q6HR PRN 03/31/15 03/13/23 History Inhaler] Rosuvastatin Calcium [Crestor] 40 mg PO HS 03/30/16 03/13/23 History Fluticasone Nasal [place] [Flonase 1 spray EA NOSTRIL DAILY PRN 11/08/18 03/13/23 History Nasal [place]] Ezetimibe [Zetia] 10 mg PO DAILY 03/08/23 03/13/23 History Pantoprazole [Protonix] 40 mg PO DAILY 03/08/23 03/13/23 History amLODIPine [Norvasc] 5 mg PO DAILY 03/08/23 03/13/23 History lisinopriL [Zestril] 20 mg PO BID 03/08/23 03/13/23 History Allergies Allergy/AdvReac Type Severity Reaction Status Date / Time sulfamethoxazole Allergy Rash/Hives Verified 03/13/23 09:23 [From Bactrim] trimethoprim [From Bactrim] Allergy Rash/Hives Verified 03/13/23 09:23 Surgical - Exam Vital Signs Temp Pulse BP Pulse Ox 97.3 F L 68 161/86 100 03/13/23 09:27 03/13/23 09:27 03/13/23 09:27 03/13/23 09:27 Physical exam: General: Well-developed, well-nourished HEENT: Normocephalic, sclerae nonicteric Abdomen: Nontender, nondistended Extremities: No edema Neuro: Alert and oriented Assessment and Plan (1) GERD (gastroesophageal reflux disease) Narrative/Plan: Will proceed with upper endoscopy Current Visit: No Status: Acute Code(s): K21.9 - GASTRO-ESOPHAGEAL REFLUX DISEASE WITHOUT ESOPHAGITIS SNOMED Code(s): 135779558
--- NOTE | 2023-03-13 09:53 | P.PCN ---
Date of Procedure: 03/13/23 Procedure(s) Performed: Preoperative Dx: GERD Postoperative Dx: Mild duodenitis, mild gastritis, small hiatal hernia Procedure: EGD with Bx Anesthesia: Sedation Endoscopist: Dr. Dumont Specimens: Duodenum, antrum Endoscopic Procedure: The patient was on the endoscopy table in the left decubitus position. The Olympus gastroscope was inserted into the oropharynx and passed under direct visualization to the region of the third portion of the duodenum. From that point the scope was slowly withdrawn inspecting all surfaces carefully. There was mild duodenitis present. A biopsy of the duodenum took place. The pylorus was widely patent. The stomach was carefully inspected. There was mild gastritis as well. A biopsy of the antrum took place to rule out H. pylori. Retroflexion revealed a small sliding hiatal hernia. The GE junction was present 1.5 cm above the diaphragmatic hiatus. There were no inflammatory changes present. The esophagus was then carefully examined. There were no neoplastic inflammatory or polypoid lesions throughout the visualized esophagus. The patient was then taken to the recovery room in stable condition per anesthesia guidelines. Recommendations: Biopsy results. Continue antiacid therapy. Recommend colonoscopy at some point given patient's history of colon polyps.
[2023-03-13 10:24] VITALS: BP 153/88; PULSE 99; RESP 16
== END 2023-03-13 10:36 | disposition home or self-care (01) ==
LOC: ORWHC2ENDO 08:59
PROVIDERS: ATTEND Surgery
DX: K29.50 Unspecified chronic gastritis without bleeding (principal); K29.80 Duodenitis without bleeding; K44.9 Diaphragmatic hernia without obstruction or gangrene; E11.9 Type 2 diabetes mellitus without complications; E78.5 Hyperlipidemia, unspecified; K21.9 Gastro-esophageal reflux disease without esophagitis; I10 Essential (primary) hypertension; I34.1 Nonrheumatic mitral (valve) prolapse; E07.9 Disorder of thyroid, unspecified; J45.909 Unspecified asthma, uncomplicated; Z79.890 Hormone replacement therapy; Z79.899 Other long term (current) drug therapy; Z88.1 Allergy status to other antibiotic agents; Z88.2 Allergy status to sulfonamides; Z79.51 Long term (current) use of inhaled steroids
CPT/HCPCS: 88305; 88342; 88341; 43239; J2001; J2704

== ENCOUNTER → 2023-04-06 | Outpatient (CLI) | payer OTHER ==
--- NOTE | 2023-04-09 16:54 | MM ---
Reason for Exam: Screening (asymptomatic). Last mammogram was performed 2 year(s) and 1 month(s) ago. Patient History: Menarche at age 10. First Full-Term at age 14. Hysterectomy at age 33. Postmenopausal. 2007, Bilateral Reduction. Risk Values: Jenny 5 year model risk: 1.4%. NCI Lifetime model risk: 6.9%. Prior Study Comparison: 12/18/2014 Bilateral Screening Mammogram, [facility]. 05/11/2017 Bilateral Screening Mammogram, [facility]. 03/11/2021 Bilateral Screening Mammogram, [facility]. Tissue Density: There are scattered fibroglandular densities. Findings: Analyzed By CAD. Bilateral reduction mammoplasty changes. Large area of fat necrosis calcifications are present on either side. Additional chronic bilateral low density nodularity. There is no suspicious group of microcalcifications or new suspicious mass in either breast. Overall Assessment: Benign, BI-RAD 2 Management: Screening Mammogram of both breasts in 1 year. . Patient should continue monthly self-breast exams. A clinical breast exam by your physician is recommended on an annual basis. This exam should not preclude additional follow-up of suspicious palpable abnormalities. Note on Jenny scores and lifetime risk: 1. A Jenny score greater than 3% is considered moderate risk. If this is the case, consider specialist referral to assess eligibility for a risk reducing agent. 2. If overall lifetime risk for the development of breast cancer is 20% or higher, the patient may qualify for future screening with alternating mammogram and breast MRI. Electronically signed and approved by: Armond Wynn M.D. Radiologist
== END | disposition home or self-care (01) ==
LOC: RADMAMWWP 09:28
PROVIDERS: ATTEND Internal Medicine Geriatric Medicine
DX: Z12.31 Encounter for screening mammogram for malignant neoplasm of breast (principal); Z78.0 Asymptomatic menopausal state
CPT/HCPCS: 77063; 77067

== ENCOUNTER → 2023-05-18 | Outpatient (CLI) | payer OTHER ==
--- NOTE | 2023-05-22 10:55 | PE ---
EXAMINATION TYPE: PET CT fusion skull to thigh DATE OF EXAM: 05/18/2023 COMPARISON: CT abdomen and pelvis 11/08/2018. No more recent prior CTs available at this location. Prior PET/CT: None HISTORY: Lymphoma, history of abdominal biopsy. TECHNIQUE: Following the intravenous administration of 9.5 mCi of F-18 FDG, whole body images are pe rformed from the skull base to the midthigh. Images are reviewed on the computer in the coronal, axi al, and sagittal planes. Reconstructed rotating images are created on independent workstation and re viewed on the computer. A localization and attenuation correction CT is performed in conjunction wi th the PET scan. DLP: 883.29 mGycm SCAN: Initial Blood glucose: 101 mg/dL Average Mediastinum SUV: 2.79 Average Liver SUV: 2.0 to FINDINGS: NECK: No abnormal uptake THORAX: No abnormal uptake ABDOMEN: No abnormal uptake. There are scattered small mesenteric lymph nodes within the mid abdomen with mild adjacent inflammato ry change within the mesentery. However, no abnormal uptake is identified within these lymph nodes. T hese appear SUV less than the background of the nearby small bowel loops. PELVIS: No abnormal uptake OSSEOUS STRUCTURES: No abnormal uptake LOCALIZATION CT: Large peripheral calcifications within the bilateral breasts. There is a cyst on the medial left kidney. There is been prior cholecystectomy. COMPARISON: 2019 CT is reviewed IMPRESSION: 1. Suspicious radiotracer uptake within lymphadenopathy to suggest lymphoma not clearly evident on e current examination. 2. Correlate with prior biopsy and laboratory results.
== END | disposition home or self-care (01) ==
LOC: RADPETMAIN 09:22
PROVIDERS: ATTEND Internal Medicine Hematology & Oncology
DX: C82.09 Follicular lymphoma grade I, extranodal and solid organ sites (principal)
CPT/HCPCS: 78815; A9552

== ENCOUNTER → 2023-09-18 | Outpatient (CLI) | payer OTHER | LOC: CPPFTMAIN 08:37 | PROVIDERS: ATTEND Internal Medicine Clinical Cardiac Electrophysiology | DX: R06.02 Shortness of breath (principal); Z88.2 Allergy status to sulfonamides; Z88.1 Allergy status to other antibiotic agents | CPT/HCPCS: 94060; 94726; 94729 ==

== ENCOUNTER 2023-10-20 16:12 | Inpatient (IN) | payer OTHER ==
[2023-10-20 16:50] LABS: Basophils % (A) 1 %; Eosinophils % (A) 0 %; HCT 40.4 % (34.0-46.0); HGB 13.1 gm/dL (11.4-16.0); Hypochromasia Slight; Lymphocytes # (A) 1.5 k/uL (1.0-4.8); Lymphocytes % (A) 35 %; MCH 30.4 pg (25.0-35.0); MCHC 32.5 g/dL (31.0-37.0); MCV 93.6 fL (80.0-100.0); Monocytes # (A) 0.5 k/uL (0-1.0); Monocytes % (A) 12 %; Neutrophils % (A) 49 %; Platelet Count 197 k/uL (150-450); RBC 4.31 m/uL (3.80-5.40); WBC 4.2 k/uL (3.8-10.6)
--- NOTE | 2023-10-20 16:57 | XR ---
EXAMINATION TYPE: XR chest 2V DATE OF EXAM: 10/20/2023 COMPARISON: NONE HISTORY: Shortness of breath TECHNIQUE: Frontal and lateral views of the chest are obtained. FINDINGS: Scattered senescent parenchymal changes noted. Hyperinflation compatible with COPD. No evidence for infiltrate. No evidence for atelectasis. Heart size is stable. Mediastinal structures are stable and grossly unremarkable. No evidence for hilar prominence. Degenerative changes dorsal spine. IMPRESSION: 1. No evidence for acute pulmonary disease.
[2023-10-20 17:03] LABS: ALT 34 U/L (4-34); AST 75 U/L (14-36); African American GFR (CKD) 57 (>60 ml/min/1.73 sqM); Albumin 4.1 g/dL (3.5-5.0); Alkaline Phosphatase 78 U/L (38-126); Anion Gap 6 mmol/L; Blood Urea Nitrogen 18 mg/dL (7-17); Carbon Dioxide 26 mmol/L (22-30); Chloride 107 mmol/L (98-107); Creatine Kinase 608 U/L (30-135); Glucose 163 mg/dL (74-99); Magnesium 2.1 mg/dL (1.6-2.3); Non-African American GFR(CKD) 50 (>60 ml/min/1.73 sqM); Potassium 3.5 mmol/L (3.5-5.1); Sodium 139 mmol/L (137-145); Total Bilirubin 0.7 mg/dL (0.2-1.3); Total Protein 6.7 g/dL (6.3-8.2)
[2023-10-20 17:10] LABS: Prothrombin Time 10.6 sec (10.0-12.5)
[2023-10-20 18:36] LABS: Appearance,Urine Cloudy (Clear); Bacteria,Urine Few /hpf; Bilirubin,Urine Negative (Negative); Blood,Urine Small (Negative); Color,Urine Yellow; Glucose,Urine (UA) Negative (Negative); Hyaline Casts,Urine 17 /lpf (0-2); Ketones,Urine 1+ (Negative); Leukocyte Esterase,Urine Large (Negative); Mucus,Urine Few /hpf; Nitrite,Urine Negative (Negative); PH, Urine 5.5 (5.0-8.0); Protein,Urine 1+ (Negative); RBC,Urine 3 /hpf (0-5); Specific Gravity,Urine 1.021 (1.001-1.035); Squamous Epithelial Cell,Urine 4 /hpf (0-4); Urobilinogen,Urine <2.0 mg/dL (<2.0); WBC,Urine 9 /hpf (0-5)
[2023-10-20] MEDS: SODIUM CHLORIDE 0.9% 1,000 ML IV STA (19:24)
--- NOTE | 2023-10-20 19:30 | ED ---
General Adult HPI - General Chief complaint: Syncope Stated complaint: Syncope Time Seen by Provider: 10/20/23 16:17 Source: patient, EMS, RN notes reviewed Mode of arrival: EMS Limitations: no limitations - History of Present Illness Initial comments: 58-year-old female who has a history of lymphoma which is currently being worked up and treated who was at a family gathering when she had a syncopal episode lasting about 2 minutes she was unresponsive for the period time family members were present patient woke up immediately after about 2 minutes. She complained of no palpitations no fevers chills nausea vomiting sweats no prior history of this. - Related Data Home Medications Medication Instructions Recorded Confirmed ALPRAZolam 0.25 mg PO BID PRN 05/11/14 03/13/23 Levothyroxine Sodium [Synthroid] 50 mcg PO QAM 05/11/14 03/13/23 Metoprolol Succinate (ER) [Toprol 25 mg PO QAM 05/11/14 03/13/23 Xl] traMADol HCL [Tramadol HCl] 50 mg PO Q6H PRN 05/11/14 03/13/23 Albuterol Inhaler [Ventolin Hfa 1 - 2 puff INHALATION Q6HR PRN 03/31/15 03/13/23 Inhaler] Rosuvastatin Calcium [Crestor] 40 mg PO HS 03/30/16 03/13/23 Fluticasone Nasal [place] [Flonase 1 spray EA NOSTRIL DAILY PRN 11/08/18 03/13/23 Nasal [place]] Ezetimibe [Zetia] 10 mg PO DAILY 03/08/23 03/13/23 Pantoprazole [Protonix] 40 mg PO DAILY 03/08/23 03/13/23 amLODIPine [Norvasc] 5 mg PO DAILY 03/08/23 03/13/23 lisinopriL [Zestril] 20 mg PO BID 03/08/23 03/13/23 Allergies Allergy/AdvReac Type Severity Reaction Status Date / Time sulfamethoxazole Allergy Rash/Hives Verified 03/13/23 09:23 [From Bactrim] trimethoprim [From Bactrim] Allergy Rash/Hives Verified 03/13/23 09:23 Review of Systems ROS Statement: Those systems with pertinent positive or pertinent negative responses have been documented in the HPI. ROS Other: All systems not noted in ROS Statement are negative. Past Medical History Past Medical History: Asthma, Diabetes Mellitus, GERD/Reflux, Hyperlipidemia, Hypertension, Mitral Valve Prolapse (MVP), Thyroid Disorder Additional Past Medical History / Comment(s): mitral valve regurg., gastritis & GERD over Thanksgiving, hx. of fast heart rate, borderline diabetic, had some kidney issues in the past related to meds but resolved after meds adjusted History of Any Multi-Drug Resistant Organisms: None Reported Past Surgical History: Breast Surgery, Hysterectomy, Orthopedic Surgery, Tubal Ligation Additional Past Surgical History / Comment(s): CARLY, breast reduction, arthroscopy knee Past Anesthesia/Blood Transfusion Reactions: No Reported Reaction Past Psychological History: Anxiety Smoking Status: Never smoker - Past Family History Mother Family Medical History: CVA/TIA, Hypertension General Exam - General Exam Comments Initial Comments: This is a well-developed well-nourished awake alert oriented x 4 female Limitations: no limitations General appearance: alert, in no apparent distress Head exam: Present: atraumatic, normocephalic, normal inspection Eye exam: Present: normal appearance, PERRL, EOMI. Absent: scleral icterus, conjunctival injection, periorbital swelling ENT exam: Present: normal exam, mucous membranes moist Neck exam: Present: normal inspection, full ROM, other (No JVD or bruits). Absent: tenderness, meningismus, lymphadenopathy Respiratory exam: Present: normal lung sounds bilaterally. Absent: respiratory distress, wheezes, rales, rhonchi, stridor Cardiovascular Exam: Present: regular rate, normal rhythm, normal heart sounds. Absent: systolic murmur, diastolic murmur, rubs, gallop, clicks GI/Abdominal exam: Present: soft, normal bowel sounds. Absent: distended, tenderness, guarding, rebound, rigid, bruit, pulsatile mass Extremities exam: Present: normal inspection, full ROM, normal capillary refill. Absent: tenderness, pedal edema, joint swelling, calf tenderness Back exam: Present: normal inspection Neurological exam: Present: alert, oriented X3, CN II-XII intact Psychiatric exam: Present: normal affect, normal mood Skin exam: Present: warm, dry, intact, normal color. Absent: rash Course Vital Signs 10/20/23 10/20/23 10/20/23 16:16 19:30 20:19 Temperature 98.3 F Pulse Rate 89 89 86 Respiratory 18 16 12 Rate Blood Pressure 109/55 153/77 145/72 O2 Sat by Pulse 97 97 98 Oximetry Medical Decision Making - Medical Decision Making Was pt. sent in by a medical professional or institution (, HA, SPOT MACHINE OPERATOR, urgent care, hospital, or prison...) When possible be specific @ -No Did you speak to anyone other than the patient for history (EMS, parent, family, police, friend...)? What history was obtained from this source @ -EMS personnel, family Did you review nursing and triage notes (agree or disagree)? Why? @ -I reviewed and agree with nursing and triage notes Were old charts reviewed (outside hosp., previous admission, EMS record, old EKG, old radiological studies, urgent care reports/EKG's, prison records)? Report findings @ -No old charts were reviewed Differential Diagnosis (chest pain, altered mental status, abdominal pain women, abdominal pain men, vaginal bleeding, weakness, fever, dyspnea, syncope, headache, dizziness, GI bleed, back pain, seizure, CVA, palpatations, mental he alth, musculoskeletal)? @ -Syncope EKG interpreted by me (3pts min.). @ -As above EKG interpreted by me sinus rhythm 88 parable 170 QRS duration 87 QT/QTc 344/390 possible left atrial enlargement possible left ventricular hypertrophy nonspecific ST configuration X-rays interpreted by me (1pt min.). @ -X-ray negative I did interpret this CT interpreted by me (1pt min.). @ -Interpreted by me CT brain negative CT angio negative for acute process U/S interpreted by me (1pt. min.). @ -None done What testing was considered but not performed or refused? (CT, X-rays, U/S, labs)? Why? @ -None What meds were considered but not given or refused? Why? @ -None Did you discuss the management of the patient with other professionals (professionals i.e. , HA, SPOT MACHINE OPERATOR, lab, RT, psych nurse, manager social work, senior process control tech, teacher, staff readiness officer, spring encaser)? Give summary @ -Dr. Carroll and Sarah Was smoking cessation discussed for >3mins.? @ -No Was critical care preformed (if so, how long)? @ -yes, 31 minutes Were there social determinants of health that impacted care today? How? (Homelessness, low income, unemployed, alcoholism, drug addiction, transportation, low edu. Level, literacy, decrease access to med. care, nursing home, rehab)? @ -No Was there de-escalation of care discussed even if they declined (Discuss DNR or withdrawal of care, Hospice)? DNR status @ -No What co-morbidities impacted this encounter? (DM, HTN, Smoking, COPD, CAD, Cancer, CVA, ARF, Chemo, Hep., AIDS, mental health diagnosis, sleep apnea, morbid obesity)? @ -Asthma, Diabetes, hypertension Was patient admitted / discharged? Hospital course, mention meds given and route, prescriptions, significant lab abnormalities, going to OR and other pertinent info. @ -Hospital course patient was admitted for inpatient evaluation and treatment additionally the patient does have evidence of a UTI and will be treated Undiagnosed new problem with uncertain prognosis? @ -No Drug Therapy requiring intensive monitoring for toxicity (Heparin, Nitro, Insulin, Cardizem)? @ -No Were any procedures done? @ -No Diagnosis/symptom? @ -Syncope , UTI Acute, or Chronic, or Acute on Chronic? @ -Acute Uncomplicated (without systemic symptoms) or Complicated (systemic symptoms)? @ -Complicated] Side effects of treatment? @ -No Exacerbation, Progression, or Severe Exacerbation? @ -No Poses a threat to life or bodily function? How? (Chest pain, USA, MS, pneumonia, PE, COPD, DKA, ARF, appy, cholecystitis, CVA, Diverticulitis, Homicidal, Suicidal, threat to staff... and all critical care pts) @ -Potential I did discuss the findings with the patient and family members the patient does have complaints of frequent urination in addition to the today's syncopal episode. - Lab Data Result diagrams: 10/20/23 16:36 10/20/23 16:36 Lab Results 10/20/23 10/20/23 10/20/23 Range/Units 16:36 16:36 16:36 WBC 4.2 (3.8-10.6) k/uL RBC 4.31 (3.80-5.40) m/uL Hgb 13.1 (11.4-16.0) gm/dL Hct 40.4 (34.0-46.0) % MCV 93.6 (80.0-100.0) fL MCH 30.4 (25.0-35.0) pg MCHC 32.5 (31.0-37.0) g/dL RDW 14.0 (11.5-15.5) % Plt Count 197 (150-450) k/uL MPV 8.0 Neutrophils % 49 % Lymphocytes % 35 % Monocytes % 12 % Eosinophils % 0 % Basophils % 1 % Neutrophils # 2.0 (1.3-7.7) k/uL Lymphocytes # 1.5 (1.0-4.8) k/uL Monocytes # 0.5 (0-1.0) k/uL Eosinophils # 0.0 (0-0.7) k/uL Basophils # 0.0 (0-0.2) k/uL Hypochromasia Slight PT 10.6 (10.0-12.5) sec INR 1.0 (<1.2) APTT 22.0 (22.0-30.0) sec D-Dimer 1.19 H (<0.60) mg/L FEU Sodium 139 (137-145) mmol/L Potassium 3.5 (3.5-5.1) mmol/L Chloride 107 (98-107) mmol/L Carbon Dioxide 26 (22-30) mmol/L Anion Gap 6 mmol/L BUN 18 H (7-17) mg/dL Creatinine 1.19 H (0.52-1.04) mg/dL Est GFR (CKD-EPI)AfAm 57 (>60 ml/min/1.73 sqM) Est GFR (CKD-EPI)NonAf 50 (>60 ml/min/1.73 sqM) Glucose 163 H (74-99) mg/dL Calcium 9.0 (8.4-10.2) mg/dL Magnesium 2.1 (1.6-2.3) mg/dL Total Bilirubin 0.7 (0.2-1.3) mg/dL AST 75 H (14-36) U/L ALT 34 (4-34) U/L Alkaline Phosphatase 78 (38-126) U/L Creatine Kinase 608 H (30-135) U/L Troponin I (0.000-0.034) ng/mL Total Protein 6.7 (6.3-8.2) g/dL Albumin 4.1 (3.5-5.0) g/dL Urine Color Urine Appearance (Clear) Urine pH (5.0-8.0) Ur Specific [place] (1.001-1.035) Urine Protein (Negative) Urine Glucose (UA) (Negative) Urine Ketones (Negative) Urine Blood (Negative) Urine Nitrite (Negative) Urine Bilirubin (Negative) Urine Urobilinogen (<2.0) mg/dL Ur Leukocyte Esterase (Negative) Urine RBC (0-5) /hpf Urine WBC (0-5) /hpf Ur Squamous Epith Cells (0-4) /hpf Urine Bacteria (None) /hpf Hyaline Casts (0-2) /lpf Urine Mucus (None) /hpf 10/20/23 10/20/23 Range/Units 16:36 18:23 WBC (3.8-10.6) k/uL RBC (3.80-5.40) m/uL Hgb (11.4-16.0) gm/dL Hct (34.0-46.0) % MCV (80.0-100.0) fL MCH (25.0-35.0) pg MCHC (31.0-37.0) g/dL RDW (11.5-15.5) % Plt Count (150-450) k/uL MPV Neutrophils % % Lymphocytes % % Monocytes % % Eosinophils % % Basophils % % Neutrophils # (1.3-7.7) k/uL Lymphocytes # (1.0-4.8) k/uL Monocytes # (0-1.0) k/uL Eosinophils # (0-0.7) k/uL Basophils # (0-0.2) k/uL Hypochromasia PT (10.0-12.5) sec INR (<1.2) APTT (22.0-30.0) sec D-Dimer (<0.60) mg/L FEU Sodium (137-145) mmol/L Potassium (3.5-5.1) mmol/L Chloride (98-107) mmol/L Carbon Dioxide (22-30) mmol/L Anion Gap mmol/L BUN (7-17) mg/dL Creatinine (0.52-1.04) mg/dL Est GFR (CKD-EPI)AfAm (>60 ml/min/1.73 sqM) Est GFR (CKD-EPI)NonAf (>60 ml/min/1.73 sqM) Glucose (74-99) mg/dL Calcium (8.4-10.2) mg/dL Magnesium (1.6-2.3) mg/dL Total Bilirubin (0.2-1.3) mg/dL AST (14-36) U/L ALT (4-34) U/L Alkaline Phosphatase (38-126) U/L Creatine Kinase (30-135) U/L Troponin I <0.012 (0.000-0.034) ng/mL Total Protein (6.3-8.2) g/dL Albumin (3.5-5.0) g/dL Urine Color Yellow Urine Appearance Cloudy H (Clear) Urine pH 5.5 (5.0-8.0) Ur Specific [place] 1.021 (1.001-1.035) Urine Protein 1+ H (Negative) Urine Glucose (UA) Negative (Negative) Urine Ketones 1+ H (Negative) Urine Blood Small H (Negative) Urine Nitrite Negative (Negative) Urine Bilirubin Negative (Negative) Urine Urobilinogen <2.0 (<2.0) mg/dL Ur Leukocyte Esterase Large H (Negative) Urine RBC 3 (0-5) /hpf Urine WBC 9 H (0-5) /hpf Ur Squamous Epith Cells 4 (0-4) /hpf Urine Bacteria Few H (None) /hpf Hyaline Casts 17 H (0-2) /lpf Urine Mucus Few H (None) /hpf Critical Care Time Critical Care Time: Yes Total Critical Care Time: 31 Disposition Clinical Impression: Syncope and collapse, UTI (urinary tract infection) Disposition: ADMITTED IP TO THIS [facility] Condition: Stable Referrals: Keshawn Mireles MD [Primary Care Provider] - 1-2 days Time of Disposition: 21:00 Decision Date: 10/20/23 Decision Time: 21:00
--- NOTE | 2023-10-20 19:58 | CT ---
EXAMINATION TYPE: CT brain wo con CT DLP: 1156.5 mGycm, Automated exposure control for dose reduction was used. DATE OF EXAM: 10/20/2023 7:34 PM COMPARISON: . CLINICAL INDICATION:Female, 58 years old with history of Altered mental status, syncope TECHNIQUE: Brain: Axial CT images of the brain were obtained with coronal and sagittal reformats created and rev iewed. Contrast used: None. Oral contrast used: None. FINDINGS: Brain: Extra-axial spaces: No abnormal extra-axial fluid collections. Ventricular system: Within normal limits Cerebral parenchyma: No acute intraparenchymal hemorrhage or mass effect. The ng-white junction is well differentiated benign basal ganglia calcifications Cerebellum: Unremarkable. Mass effect: No evidence of midline shift. Intracranial vasculature: unremarkable Soft tissues: Normal. Calvarium/osseous structures: No depressed skull fracture. Paranasal sinuses and mastoid air cells: Mild scattered paranasal sinus disease. Visualized orbits: Orbital contents are intact. IMPRESSION: No acute intracranial process.
--- NOTE | 2023-10-20 20:34 | CT ---
EXAMINATION TYPE: CT angio chest CT DLP: mGycm, Automated exposure control for dose reduction was used. DATE OF EXAM: 10/20/2023 7:58 PM COMPARISON: No recent priors. CLINICAL INDICATION:Female, 58 years old with history of PE suspected; shortness of breath TECHNIQUE/CONTRAST: CTA scan of the thorax is performed with IV Contrast, patient injected with 200 mL of Isovue 370, MIP images are created and reviewed these are created on a separate workstation.. FINDINGS: Study limitations: Poor timing of contrast bolus. Pulmonary Artery: There is no evidence for a filling defect within the pulmonary vasculature to sugge st acute pulmonary embolism. The pulmonary artery is of normal size. Lungs/Pleura: No evidence of focal consolidation, pleural effusion or pneumothorax. Airway: Large airways are patent. Heart: Heart is within normal limits for size. Vasculature: No evidence of aortic aneurysm. Or dissection Mediastinum: No gross evidence of adenopathy. Musculoskeletal: No acute osseous abnormalities Soft Tissues: Benign-appearing calcified cystic lesions with outer rim calcification Lower neck: No significant findings. Upper Abdomen: No significant findings. IMPRESSION: 1. No evidence of pulmonary embolism. 2. No aortic aneurysm or dissection.
[2023-10-20] MEDS ORDERED: ACETAMINOPHEN TAB 325 MG TAB PO PRN (21:13)
[2023-10-20] MEDS ORDERED: NALOXONE 0.4 MG/ML 1 ML VIAL IV PRN (21:13)
[2023-10-20] MEDS ORDERED: traMADol 50 MG TAB PO PRN (21:15)
[2023-10-20] MEDS ORDERED: ALBUTEROL NEBULIZED 2.5 MG/3 ML INHALATION PRN (21:15)
[2023-10-20] MEDS: cefTRIAXone IN SWFI 1,000 MG/10 ML SYRINGE IVP STA (21:45)
[2023-10-20] MEDS: SODIUM CHLORIDE 0.9% 1,000 ML IV SCH (21:46)
[2023-10-20] MEDS: FLUTICASONE NASAL 50MCG/SPRAY 16GM BTL EA NOSTRIL PRN (23:27)
[2023-10-20] MEDS: ALPRAZolam 0.25 MG TAB PO PRN (23:27)
[2023-10-21 03:43] LABS: Basophils % (A) 0 %; Eosinophils % (A) 1 %; HCT 38.4 % (34.0-46.0); HGB 12.6 gm/dL (11.4-16.0); Lymphocytes # (A) 1.9 k/uL (1.0-4.8); Lymphocytes % (A) 55 %; MCH 30.3 pg (25.0-35.0); MCHC 32.7 g/dL (31.0-37.0); MCV 92.7 fL (80.0-100.0); Mean Platelet Volume 7.7; Monocytes # (A) 0.3 k/uL (0-1.0); Monocytes % (A) 9 %; Neutrophils # (A) 1.1 k/uL (1.3-7.7); Neutrophils % (A) 32 %; Platelet Count 197 k/uL (150-450); RBC 4.15 m/uL (3.80-5.40); WBC 3.4 k/uL (3.8-10.6)
[2023-10-21 03:56] LABS: African American GFR (CKD) 82 (>60 ml/min/1.73 sqM); Anion Gap 8 mmol/L; Blood Urea Nitrogen 15 mg/dL (7-17); Calcium 8.7 mg/dL (8.4-10.2); Carbon Dioxide 23 mmol/L (22-30); Chloride 108 mmol/L (98-107); Glucose 96 mg/dL (74-99); Non-African American GFR(CKD) 71 (>60 ml/min/1.73 sqM); Potassium 3.4 mmol/L (3.5-5.1); Sodium 139 mmol/L (137-145)
[2023-10-21] MEDS: LEVOTHYROXINE 50 MCG TAB PO SCH (06:02)
[2023-10-21] MEDS: PANTOPRAZOLE 40 MG TABLET PO SCH (08:11)
[2023-10-21] MEDS: lisinopriL 20 MG TAB PO SCH (08:11)
[2023-10-21] MEDS: METOPROLOL SUCCINATE (ER) 25 MG TAB.ER.24H PO SCH (08:11)
[2023-10-21] MEDS ORDERED: EZETIMIBE 10 MG TAB PO SCH (09:00)
[2023-10-21] MEDS ORDERED: amLODIPine 5 MG TAB PO SCH (09:00)
[2023-10-21] MEDS ORDERED: Potassium Replacement Protocol 1 EACH MISC MISCELLANE PRN (10:43)
--- NOTE | 2023-10-21 10:44 | P.CRDCN ---
History of Present Illness Consult date: 10/21/23 Chief complaint: Syncope History of present illness: The patient is a pleasant 58-year-old female patient with a past medical history significant for borderline diabetes and overweight and hypertension and dyslipidemia and valvular heart disease with mitral regurgitation and recent diagnosis of follicular cell lymphoma. We consulted to see the patient for further evaluation of syncope. The patient was in her usual state of health where she was attending yesterday graduation republican of her grandson. After she ate she sat. Subsequently she passed out for few seconds only. No prodromal symptoms of any warm feeling or nausea feeling or any symptoms of dizziness or lightheadedness or heart racing or fluttering and no symptoms of chest pain. Before that and for the last few weeks she has been experiencing shortness of breath with exertion which has been somewhat slightly progressed compared to before but no associated discomfort in the chest and never had any syncope before. During this hospital stay she underwent further evaluation including troponin came in to be unremarkable and CT scan of the brain came in to be unremarkable and chest x-ray did not show any acute abnormalities. UTI was diagnosed and the patient currently is on antibiotic. The EKG showed sinus mechanism with mild ST changes definitely concerning for severe underlying coronary artery disease. Examination is remarkable for regular rhythm with a soft systolic murmur and clear breathing sounds bilaterally and no edema was noted in the lower extremities Assessment Syncopal episode with differential diagnosis of reflex syncope versus cardiac syncope Shortness of breath which has somewhat progressed compared to before Known valvular heart disease with mitral regurgitation was moderate based on the last echocardiogram as an outpatient Multiple comorbid conditions including overweight and borderline diabetes and hypertension and dyslipidemia Recent diagnosis of follicular cell lymphoma Plan Continue the current medical regimen Perform orthostatic blood pressure Monitor the patient for any arrhythmia Further risk stratification including stress test and echocardiogram Replace her potassium Continue antibiotic for UTI Follow-up with the patient Past Medical History Past Medical History: Asthma, Diabetes Mellitus, GERD/Reflux, Hyperlipidemia, Hypertension, Mitral Valve Prolapse (MVP), Thyroid Disorder Additional Past Medical History / Comment(s): mitral valve regurg., gastritis & GERD over Thanksgiving, hx. of fast heart rate, borderline diabetic, had some kidney issues in the past related to meds but resolved after meds adjusted. follicular b-cell lymphoma Mar 2023 History of Any Multi-Drug Resistant Organisms: None Reported Past Surgical History: Breast Surgery, Hysterectomy, Orthopedic Surgery, Tubal Ligation Additional Past Surgical History / Comment(s): CARLY, bilateral breast reduction, arthroscopy knee Past Anesthesia/Blood Transfusion Reactions: No Reported Reaction Smoking Status: Never smoker - Past Family History Mother Family Medical History: CVA/TIA, Hypertension Medications and Allergies Home Medications Medication Instructions Recorded Confirmed Type ALPRAZolam 0.25 mg PO BID PRN 05/11/14 03/13/23 History Levothyroxine Sodium [Synthroid] 50 mcg PO QAM 05/11/14 03/13/23 History Metoprolol Succinate (ER) [Toprol 25 mg PO QAM 05/11/14 03/13/23 History Xl] traMADol HCL [Tramadol HCl] 50 mg PO Q6H PRN 05/11/14 03/13/23 History Albuterol Inhaler [Ventolin Hfa 1 - 2 puff INHALATION Q6HR PRN 03/31/15 03/13/23 History Inhaler] Rosuvastatin Calcium [Crestor] 40 mg PO HS 03/30/16 03/13/23 History Fluticasone Nasal [place] [Flonase 1 spray EA NOSTRIL DAILY PRN 11/08/18 03/13/23 History Nasal [place]] Ezetimibe [Zetia] 10 mg PO DAILY 03/08/23 03/13/23 History Pantoprazole [Protonix] 40 mg PO DAILY 03/08/23 03/13/23 History amLODIPine [Norvasc] 5 mg PO DAILY 03/08/23 03/13/23 History lisinopriL [Zestril] 20 mg PO BID 03/08/23 03/13/23 History Allergies Allergy/AdvReac Type Severity Reaction Status Date / Time sulfamethoxazole Allergy Rash/Hives Verified 03/13/23 09:23 [From Bactrim] trimethoprim [From Bactrim] Allergy Rash/Hives Verified 03/13/23 09:23 Physical Exam Vitals: Vital Signs Temp Pulse Pulse Resp BP BP Pulse Ox 10/21/23 08:00 98.5 F 80 18 115/71 99 10/21/23 07:47 78 18 146/94 10/21/23 06:54 97.8 F 70 17 124/74 95 10/21/23 04:24 75 20 108/70 94 L 10/21/23 01:58 76 18 104/47 95 10/21/23 00:50 73 14 142/91 94 L 10/20/23 23:35 78 12 151/84 96 10/20/23 22:10 82 15 123/80 96 10/20/23 20:19 86 12 145/72 98 10/20/23 19:30 89 16 153/77 97 10/20/23 16:16 98.3 F 89 18 109/55 97 Intake and Output 10/20/23 10/21/23 10/21/23 22:59 06:59 14:59 Other: Weight 98.43 kg 98.43 kg Results 10/21/23 03:16 10/21/23 03:16 Cardiac Enzymes 10/20/23 10/20/23 10/21/23 Range/Units 16:36 16:36 00:13 AST 75 H (14-36) U/L Troponin I <0.012 <0.012 (0.000-0.034) ng/mL 10/21/23 Range/Units 03:16 AST (14-36) U/L Troponin I <0.012 (0.000-0.034) ng/mL Coagulation 10/20/23 Range/Units 16:36 PT 10.6 (10.0-12.5) sec APTT 22.0 (22.0-30.0) sec CBC 10/20/23 10/21/23 Range/Units 16:36 03:16 WBC 4.2 3.4 L (3.8-10.6) k/uL RBC 4.31 4.15 (3.80-5.40) m/uL Hgb 13.1 12.6 (11.4-16.0) gm/dL Hct 40.4 38.4 (34.0-46.0) % Plt Count 197 197 (150-450) k/uL Comprehensive Metabolic Panel 10/20/23 10/21/23 Range/Units 16:36 03:16 Sodium 139 139 (137-145) mmol/L Potassium 3.5 3.4 L (3.5-5.1) mmol/L Chloride 107 108 H (98-107) mmol/L Carbon Dioxide 26 23 (22-30) mmol/L BUN 18 H 15 (7-17) mg/dL Creatinine 1.19 H 0.89 (0.52-1.04) mg/dL Glucose 163 H 96 (74-99) mg/dL Calcium 9.0 8.7 (8.4-10.2) mg/dL AST 75 H (14-36) U/L ALT 34 (4-34) U/L Alkaline Phosphatase 78 (38-126) U/L Total Protein 6.7 (6.3-8.2) g/dL Albumin 4.1 (3.5-5.0) g/dL Current Medications Generic Name Dose Route Start Last Admin Trade Name Freq PRN Reason Stop Dose Admin Acetaminophen 650 mg 10/20/23 21:13 Acetaminophen Tab 325 Mg Tab PO Q6HR PRN Mild Pain or Fever > 100.5 Albuterol Sulfate 2.5 mg 10/20/23 21:15 Albuterol Nebulized 2.5 Mg/3 Ml INHALATION RT-Q6H PRN Shortness Of Breath Alprazolam 0.25 mg 10/20/23 21:15 10/20/23 23:27 Alprazolam 0.25 Mg Tab PO 0.25 mg BID PRN Administration Anxiety Amlodipine Besylate 5 mg 10/21/23 20:00 Amlodipine 5 Mg Tab PO DAILY MISTY Atorvastatin Calcium 80 mg 10/21/23 21:00 Atorvastatin 80 Mg Tab PO HS MISTY Ezetimibe 10 mg 10/21/23 20:00 Ezetimibe 10 Mg Tab PO DAILY MISTY Fluticasone Propionate 1 spray 10/20/23 21:15 10/20/23 23:27 Fluticasone Nasal 50mcg/[place] 16gm Btl EA NOSTRIL 1 spray DAILY PRN Administration Nasal Congestion Sodium Chloride 1,000 mls @ 75 mls/hr 10/20/23 21:15 10/20/23 21:46 Saline 0.9% IV 75 mls/hr .[id number] MISTY Administration Levothyroxine Sodium 50 mcg 10/21/23 06:30 10/21/23 06:02 Levothyroxine 50 Mcg Tab PO 50 mcg QAM@0630 MISTY Administration Lisinopril 20 mg 10/21/23 09:00 10/21/23 08:11 Lisinopril 20 Mg Tab PO 20 mg BID MISTY Administration Metoprolol Succinate 25 mg 10/21/23 09:00 10/21/23 08:11 Metoprolol Succinate (Er) 25 Mg Tab.Er.24h PO 25 mg QAM MISTY Administration Naloxone HCl 0.2 mg 10/20/23 21:13 Naloxone 0.4 Mg/Ml 1 Ml Vial IV Q2M PRN Opioid Reversal Pantoprazole Sodium 40 mg 10/21/23 09:00 10/21/23 08:11 Pantoprazole 40 Mg Tablet PO 40 mg DAILY MISTY Administration Tramadol HCl 50 mg 10/20/23 21:15 Tramadol 50 Mg Tab PO Q6H PRN Pain Intake and Output 10/20/23 10/21/23 10/21/23 22:59 06:59 14:59 Other: Weight 98.43 kg 98.43 kg Patient Weight 10/22/23 06:59 Weight 98.43 kg 10/21/23 03:16 10/21/23 03:16
[2023-10-21 11:26] LABS: Glucose,Whole Blood 109 mg/dL (70-110)
[2023-10-21] MEDS: POTASSIUM CHLORIDE ER 20 MEQ TAB.ER PO SCH (11:30)
--- NOTE | 2023-10-21 13:06 | P.HPIM ---
History of Present Illness Patient is a pleasant 58 years old female with past medical history of multiple medical problems as below. Patient presents because of possible syncope Patient states that she was with her grandson open house she just came from park ing her car and she was sitting down when family member noticed that she was sleeping more than usual and the next thing she found herself on the ground with the daughter trying to do CPR but the patient stopped her. As per patient she woke up within 50 seconds as daughter told her, there was no seizure-like activity or urine or bowel incontinence or tongue biting She has been having more sleepiness and tiredness over the last few days complaining with decreased frequency of urination and occasional right flank pain mainly with voiding which is similar to her renal stone when she had it before She denies chest pain or dyspnea. She has coughing but no abdominal pain vomiting or diarrhea. No headache dizziness weakness numbness no blurred vision or slurred speech. Patient is afebrile and vital stable She has creatinine elevated 1.19 and baseline 1.1-1.5 INR, BMP and troponin were unremarkable. Elevated D-dimer 1.1, CTA is negative for PE or aortic dissection Urine analysis is suspicious for infection Creatinine kinase mildly elevated 608 CT of the brain negative Chest x-ray showed no acute consolidation Review of Systems Review of systems CONSTITUTIONAL: No fever, no malaise, no fatigue. HEENT: No recent visual problems or hearing problems. Denied any sore throat. CARDIOVASCULAR: No orthopnea, PND, no palpitations, no syncope. PULMONARY: No shortness of breath, no cough, no hemoptysis. GASTROINTESTINAL: No diarrhea, no nausea, no vomiting, no abdominal pain. Normoactive bowel sounds. NEUROLOGICAL: No headaches, no weakness, no numbness. HEMATOLOGICAL: Denies any bleeding or petechiae. GENITOURINARY: Denies any burning micturition,, or urgency. MUSCULOSKELETAL/RHEUMATOLOGICAL: Denies any joint pain, swelling, or any muscle pain. ENDOCRINE: Denies any polyuria or polydipsia. Past Medical History Past Medical History: Asthma, Diabetes Mellitus, GERD/Reflux, Hyperlipidemia, Hypertension, Mitral Valve Prolapse (MVP), Thyroid Disorder Additional Past Medical History / Comment(s): mitral valve regurg., gastritis & GERD over Thanksgiving, hx. of fast heart rate, borderline diabetic, had some kidney issues in the past related to meds but resolved after meds adjusted History of Any Multi-Drug Resistant Organisms: None Reported Past Surgical History: Breast Surgery, Hysterectomy, Orthopedic Surgery, Tubal Ligation Additional Past Surgical History / Comment(s): CARLY, breast reduction, arthroscopy knee Past Anesthesia/Blood Transfusion Reactions: No Reported Reaction Past Psychological History: Anxiety Smoking Status: Never smoker - Past Family History Mother Family Medical History: CVA/TIA, Hypertension Medications and Allergies Home Medications Medication Instructions Recorded Confirmed Type ALPRAZolam 0.25 mg PO BID PRN 05/11/14 10/21/23 History Levothyroxine Sodium [Synthroid] 50 mcg PO DAILY 05/11/14 10/21/23 History Albuterol Inhaler [Ventolin Hfa 1 - 2 puff INHALATION RT-Q6H PRN 03/31/15 10/21/23 History Inhaler] Rosuvastatin Calcium [Crestor] 40 mg PO HS 03/30/16 10/21/23 History Fluticasone Nasal [place] [Flonase 1 spray EA NOSTRIL BID PRN 11/08/18 10/21/23 History Nasal [place]] Ezetimibe [Zetia] 10 mg PO HS 03/08/23 10/21/23 History Pantoprazole [Protonix] 40 mg PO DAILY 03/08/23 10/21/23 History amLODIPine [Norvasc] 5 mg PO HS 03/08/23 10/21/23 History lisinopriL [Zestril] 20 mg PO BID 03/08/23 10/21/23 History Amoxic-Pot Clav 875-125Mg 1 tab PO BID 10/21/23 10/21/23 History [Augmentin 875-125] Metoprolol Succinate [Metoprolol 25 mg PO DAILY 10/21/23 10/21/23 History Succinate ER] predniSONE [Deltasone] 20 mg PO BID 10/21/23 10/21/23 History Allergies Allergy/AdvReac Type Severity Reaction Status Date / Time sulfamethoxazole Allergy Rash/Hives Verified 10/21/23 11:58 [From Bactrim] trimethoprim [From Bactrim] Allergy Rash/Hives Verified 10/21/23 11:58 Physical Exam Vitals: Vital Signs Temp Pulse Pulse Resp BP BP Pulse Ox 10/21/23 08:00 98.5 F 80 18 115/71 99 10/21/23 07:47 78 18 146/94 10/21/23 06:54 97.8 F 70 17 124/74 95 10/21/23 04:24 75 20 108/70 94 L 10/21/23 01:58 76 18 104/47 95 10/21/23 00:50 73 14 142/91 94 L 10/20/23 23:35 78 12 151/84 96 10/20/23 22:10 82 15 123/80 96 10/20/23 20:19 86 12 145/72 98 10/20/23 19:30 89 16 153/77 97 10/20/23 16:16 98.3 F 89 18 109/55 97 Intake and Output 10/20/23 10/21/23 10/21/23 22:59 06:59 14:59 Other: Weight 98.43 kg -GENERAL: The patient is alert and oriented x3, not in any acute distress. Well developed, well nourished. Obese HEENT: Pupils are round and equally reacting to light. EOMI. No scleral icterus. No conjunctival pallor. Normocephalic, atraumatic. No pharyngeal erythema. No thyromegaly. CARDIOVASCULAR: S1 and S2 present. No murmurs, rubs, or gallops. PULMONARY: Chest is clear to auscultation, no wheezing , no crackles. ABDOMEN: Soft, nontender, nondistended, normoactive bowel sounds. No palpable organomegaly. MUSCULOSKELETAL: No joint swelling or deformity. EXTREMITIES: No cyanosis, clubbing, or pedal edema. NEUROLOGICAL: Gross neurological examination did not reveal any focal deficits. SKIN: No rashes. no petechiae. Results CBC & Chem 7: 10/21/23 03:16 10/21/23 03:16 Labs: Abnormal Lab Results - Last 24 Hours (Table) 10/20/23 10/20/23 10/20/23 Range/Units 16:36 16:36 18:23 WBC (3.8-10.6) k/uL Neutrophils # (1.3-7.7) k/uL D-Dimer 1.19 H (<0.60) mg/L FEU Potassium (3.5-5.1) mmol/L Chloride (98-107) mmol/L BUN 18 H (7-17) mg/dL Creatinine 1.19 H (0.52-1.04) mg/dL Glucose 163 H (74-99) mg/dL AST 75 H (14-36) U/L Creatine Kinase 608 H (30-135) U/L Urine Appearance Cloudy H (Clear) Urine Protein 1+ H (Negative) Urine Ketones 1+ H (Negative) Urine Blood Small H (Negative) Ur Leukocyte Esterase Large H (Negative) Urine WBC 9 H (0-5) /hpf Urine Bacteria Few H (None) /hpf Hyaline Casts 17 H (0-2) /lpf Urine Mucus Few H (None) /hpf 10/21/23 10/21/23 Range/Units 03:16 03:16 WBC 3.4 L (3.8-10.6) k/uL Neutrophils # 1.1 L (1.3-7.7) k/uL D-Dimer (<0.60) mg/L FEU Potassium 3.4 L (3.5-5.1) mmol/L Chloride 108 H (98-107) mmol/L BUN (7-17) mg/dL Creatinine (0.52-1.04) mg/dL Glucose (74-99) mg/dL AST (14-36) U/L Creatine Kinase (30-135) U/L Urine Appearance (Clear) Urine Protein (Negative) Urine Ketones (Negative) Urine Blood (Negative) Ur Leukocyte Esterase (Negative) Urine WBC (0-5) /hpf Urine Bacteria (None) /hpf Hyaline Casts (0-2) /lpf Urine Mucus (None) /hpf Assessment and Plan Assessment: Acute urinary tract infection Syncope could be secondary to above Mild metabolic encephalopathy secondary to above currently resolved Diabetes mellitus Hypertension Hyperlipidemia History of mitral valve prolapse Hypothyroidism History of GERD Asthma not an active issue Plan: Start ceftriaxone and follow-up urine culture continue with gentle hydration Urine culture ordered today patient already received Rocephin x 1 in emergency Orthostatic vitals Cardiology consult Labs and medication were reviewed.. Continue same treatment. Continue with symptomatic treatment. Resume home medication. Monitor lytes and vitals. DVT and GI prophylaxis. Further recommendations depends on the clinical course of the patient DVT prophylaxis: Subcutaneous heparin GI Prophylaxis: Pepcid PT/OT: Pending Prognosis is guarded
[2023-10-21] MEDS: POTASSIUM CHLORIDE ER 20 MEQ TAB.ER PO STA (14:42)
[2023-10-21 16:25] LABS: Glucose,Whole Blood 99 mg/dL (70-110)
[2023-10-21 20:29] LABS: Glucose,Whole Blood 137 mg/dL (70-110)
[2023-10-21] MEDS: ATORVASTATIN 80 MG TAB PO SCH (21:52)
[2023-10-21] MEDS: EZETIMIBE 10 MG TAB PO SCH (21:52)
[2023-10-21] MEDS: amLODIPine 5 MG TAB PO SCH (21:52)
[2023-10-22 06:33] LABS: Glucose,Whole Blood 90 mg/dL (70-110)
--- NOTE | 2023-10-22 08:43 | US ---
EXAMINATION TYPE: US carotid duplex BILAT DATE OF EXAM: 10/22/2023 Exam done portable COMPARISON: NONE CLINICAL INDICATION: Female, 58 years old with history of ?? TIA; TECHNIQUE: Carotid duplex ultrasound examination. Indirect Doppler criteria was utilized. FINDINGS: EXAM MEASUREMENTS: RIGHT: Peak Systolic Velocity (PSV) cm/sec ----- Right CCA: 99.4 ----- Right ICA: 97.0 ----- Right ECA: 113.0 ICA/CCA ratio: 1.0 RIGHT: End Diastole cm/sec ----- Right CCA: 32.5 ----- Right ICA: 32.3 ----- Right ECA: 14.8 LEFT: Peak Systolic Velocity (PSV) cm/sec ----- Left CCA: 108.0 ----- Left ICA: 88.9 ----- Left ECA: 103.0 ICA/CCA ratio: 0.8 LEFT: End Diastole cm/sec ----- Left CCA: 29.3 ----- Left ICA: 33.6 ----- Left ECA: 9.7 VERTEBRALS (direction of flow): Right Vertebral: Antegrade Left Vertebral: Antegrade Rhythm: Normal No significant stenosis IMPRESSION: Less than 50% stenosis of the bilateral carotid bifurcations. Criteria for Assigning % of Stenosis / Diameter reduction (Estimation based on the indirect measurements of the internal carotid artery velocities (ICA PSV). 1. Normal (no stenosis)=ICA PSV < 125 cm/s: ratio < 2.0: ICA EDV<40 cm/s. 2. Less than 50% stenosis=ICA PSV < 125 cm/s: ratio < 2.0: ICA EDV<40 cm/s. 3. 50 to 69% stenosis=ICA PSV of 125 to 230 cm/s: ration 2.0 ? 4.0: ICA EDV 40-100 cm/s. 4. Greater than 70% stenosis to near occlusion= ICA PSV > 230 cm/s: ratio > 4.0: ICA EDV > 100 cm/s. 5. Near occlusion= ICA PSV velocities may be low or undetectable: variable ratio and ICA EDV. 6. Total occlusion=unable to detect flow.
[2023-10-22 08:52] LABS: Anion Gap 11.6 mmol/L (4.00-12.00); Carbon Dioxide 23.4 mmol/L (21.6-31.8); Magnesium 2.2 mg/dL (1.5-2.4); Potassium 3.9 mmol/L (3.5-5.5)
[2023-10-22 11:10] LABS: Glucose,Whole Blood 90 mg/dL (70-110)
--- NOTE | 2023-10-22 11:39 | P.PN ---
Subjective HISTORY OF PRESENT ILLNESS: The patient is a pleasant 58-year-old female patient with a past medical history significant for borderline diabetes and overweight and hypertension and dyslipidemia and valvular heart disease with mitral regurgitation and recent diagnosis of follicular cell lymphoma. We consulted to see the patient for further evaluation of syncope. The patient was in her usual state of health where she was attending yesterday graduation green party of her grandson. After she ate she sat. Subsequently she passed out for few seconds only. No prodromal symptoms of any warm feeling or nausea feeling or any symptoms of dizziness or lightheadedness or heart racing or fluttering and no symptoms of chest pain. Before that and for the last few weeks she has been experiencing shortness of breath with exertion which has been somewhat slightly progressed compared to before but no associated discomfort in the chest and never had any syncope before. During this hospital stay she underwent further evaluation including troponin came in to be unremarkable and CT scan of the brain came in to be unremarkable and chest x-ray did not show any acute abnormalities. UTI was diagnosed and the patient currently is on antibiotic. The EKG showed sinus mechanism with mild ST changes definitely concerning for severe underlying coronary artery disease. Examination is remarkable for regular rhythm with a soft systolic murmur and clear breathing sounds bilaterally and no edema was noted in the lower extremities 10/22/2023 Patient examined this morning at the bedside. Patient is about to undergo EEG. Patient currently denies any chest pain or pressure. She denies any shortness of breath. Vital signs are stable. PHYSICAL EXAM: VITAL SIGNS: Reviewed. GENERAL: Well-developed in no acute distress. NECK: Supple. No JVD or thyromegaly LUNGS: Respirations even and unlabored. Lungs essentially clear to auscultation bilaterally. HEART: Regular rate and rhythm. S1 and S2 heard. EXTREMITIES: Normal range of motion. No clubbing or cyanosis. Peripheral pulses intact. No lower extremity edema ASSESSMENT: Syncope, etiology unclear Hypertension Hyperlipidemia Borderline diabetes Recent diagnosis of follicular cell lymphoma Valvular heart disease with moderate MR PLAN: Continue current cardiac medications 2D echo has been ordered. Await results. Patient to undergo stress echocardiogram today If negative, patient may be discharged home from a cardiac standpoint Nurse practitioner note has been reviewed by physician. Signing provider agrees with the documented findings, assessment, and plan of care documented by SOCIAL WORKER AIDE as a scribe. Objective - Vital Signs Vital signs: Vital Signs Temp 98.0 F 10/22/23 07:11 Pulse 82 10/22/23 07:11 Resp 20 10/22/23 07:11 BP 118/78 10/22/23 07:11 Pulse Ox 97 10/22/23 07:11 FiO2 Intake & Output 10/21/23 10/22/23 10/22/23 18:59 06:59 18:59 Intake Total 800 Balance 800 Weight 98.43 kg Intake: Intake, IV Titration 600 Amount Sodium Chloride 0.9% 1, 600 000 ml @ 50 mls/hr IV . Q20H [facility] Rx#:[id number] Oral 200 Other: # Voids 3 3 - Labs CBC & Chem 7: 10/21/23 03:16 10/22/23 05:19 Labs: Abnormal Lab Results - Last 24 Hours (Table) 10/21/23 10/22/23 Range/Units 20:22 05:19 Sodium 146 H (135-145) mmol/L Chloride 111 H (96-109) mmol/L POC Glucose (mg/dL) 137 H (70-110) mg/dL
--- NOTE | 2023-10-22 14:43 | P.CNNES ---
History of Present Illness Consult date: 10/22/23 Requesting physician: Keshawn Mireles Reason for Consult: seizure History of Present Illness: This is a 58-year-old woman the emergency department because of syncopal episode. Patient was with her family members and then when she was sitting down with her family members she noticed that she was sleeping more than usual this past Sunday. As a result she was sleeping on her family members shoulder and she stated that she became weight. Then she had agonal breathing. There is no pulse so we members performed CPR for 50 seconds. She did have urinary incontinence. No jerking of any extremities. No bowel incontinence. She stated this past she had a headache in the frontal nasal region and was unbearable headache and initially she was evaluated by urgent care and she was notified she had infection. For the headache again it was on frontal nasal region. It was 10/10. She felt was throbbing. She felt was photophobia and phonophobia. Denies any nausea or vomiting. It was throughout the day and had is drastically better.. Patient does not have any history of seizure. No history of stroke. She does have history of Graves' disease. She also has a history of small intestinal lymphoma. Some of the workup during this hospital visit consisted of: CBC with differential on presentation is unremarkable Initial creatinine is 1.19 and has resolved. AST is 75 CK level 608 otherwise rest of the chemistry panel is unremarkable CT of the head is reported as no acute intracranial process. I personally reviewed the CT and agree with the report. Duplex is reported as less than 50% stenosis bilateral carotid bifurcation. Review of Systems The positive and negative as per HPI. Past Medical History Past Medical History: Asthma, Diabetes Mellitus, GERD/Reflux, Hyperlipidemia, Hypertension, Mitral Valve Prolapse (MVP), Thyroid Disorder Additional Past Medical History / Comment(s): mitral valve regurg., gastritis & GERD over Thanksgiving, hx. of fast heart rate, borderline diabetic, had some kidney issues in the past related to meds but resolved after meds adjusted History of Any Multi-Drug Resistant Organisms: None Reported Past Surgical History: Breast Surgery, Hysterectomy, Orthopedic Surgery, Tubal Ligation Additional Past Surgical History / Comment(s): CARLY, breast reduction, arthroscopy knee Past Anesthesia/Blood Transfusion Reactions: No Reported Reaction Past Psychological History: Anxiety Smoking Status: Never smoker - Past Family History Mother Family Medical History: CVA/TIA, Hypertension Medications and Allergies Home Medications Medication Instructions Recorded Confirmed Type ALPRAZolam 0.25 mg PO BID PRN 05/11/14 10/21/23 History Levothyroxine Sodium [Synthroid] 50 mcg PO DAILY 05/11/14 10/21/23 History Albuterol Inhaler [Ventolin Hfa 1 - 2 puff INHALATION RT-Q6H PRN 03/31/15 10/21/23 History Inhaler] Rosuvastatin Calcium [Crestor] 40 mg PO HS 03/30/16 10/21/23 History Fluticasone Nasal Hooper [Flonase 1 spray EA NOSTRIL BID PRN 11/08/18 10/21/23 History Nasal Hooper] Ezetimibe [Zetia] 10 mg PO HS 03/08/23 10/21/23 History Pantoprazole [Protonix] 40 mg PO DAILY 03/08/23 10/21/23 History amLODIPine [Norvasc] 5 mg PO HS 03/08/23 10/21/23 History lisinopriL [Zestril] 20 mg PO BID 03/08/23 10/21/23 History Amoxic-Pot Clav 875-125Mg 1 tab PO BID 10/21/23 10/21/23 History [Augmentin 875-125] Metoprolol Succinate [Metoprolol 25 mg PO DAILY 10/21/23 10/21/23 History Succinate ER] predniSONE [Deltasone] 20 mg PO BID 10/21/23 10/21/23 History Allergies Allergy/AdvReac Type Severity Reaction Status Date / Time sulfamethoxazole Allergy Rash/Hives Verified 10/21/23 11:58 [From Bactrim] trimethoprim [From Bactrim] Allergy Rash/Hives Verified 10/21/23 11:58 Physical Examination - Vital Signs Vital Signs: Vital Signs Temp Pulse Resp BP BP BP Pulse Ox 10/22/23 07:11 98.0 F 82 20 118/78 97 10/22/23 00:51 98.4 F 70 16 106/70 96 10/21/23 22:12 18 10/21/23 19:36 98.6 F 81 18 109/70 98 Intake and Output 10/21/23 10/22/23 10/22/23 22:59 06:59 14:59 Intake Total 200 600 Balance 200 600 Intake: Intake, IV Titration 600 Amount Sodium Chloride 0.9% 1, 600 000 ml @ 50 mls/hr IV . Q20H [facility] Rx#:[id number] Oral 200 Other: # Voids 3 GENERAL: The patient is lying in bed and is not in acute distress. NEUROLOGICAL: Higher mental function: The patient is awake, alert, oriented to self, place and time. Patient is following commands. No aphasia and no neglect. Cranial nerves: The pupils are round, equal and reactive to light and accommodation. Visual henderson are full to confrontation throughout. Extraocular movement is intact no nystagmus is noted. Facial sensation is normal to touch throughout. The facial strength is normal throughout. Hearing is normal bilaterally to hand rub. Tongue is midline and moved [id number] without any difficulty. No dysarthria is noted. Shoulder shrug is normal bilaterally. Motor: The strength is 5 over 5 throughout. Normal tone and bulk. Cerebellum: Normal finger to nose heel to bright bilaterally. Sensation: Sensation is normal to touch throughout. Reflexes (right/left): 2+ throughout. Plantars are downgoing bilaterally. Results - Laboratory Findings CBC and BMP: 10/21/23 03:16 10/22/23 05:19 Abnormal Lab Findings: Abnormal Labs 10/20/23 10/20/23 10/20/23 16:36 16:36 18:23 WBC Neutrophils # D-Dimer 1.19 H Sodium Potassium Chloride BUN 18 H Creatinine 1.19 H Glucose 163 H POC Glucose (mg/dL) AST 75 H Creatine Kinase 608 H Urine Appearance Cloudy H Urine Protein 1+ H Urine Ketones 1+ H Urine Blood Small H Ur Leukocyte Esterase Large H Urine WBC 9 H Urine Bacteria Few H Hyaline Casts 17 H Urine Mucus Few H 10/21/23 10/21/23 10/21/23 03:16 03:16 20:22 WBC 3.4 L Neutrophils # 1.1 L D-Dimer Sodium Potassium 3.4 L Chloride 108 H BUN Creatinine Glucose POC Glucose (mg/dL) 137 H AST Creatine Kinase Urine Appearance Urine Protein Urine Ketones Urine Blood Ur Leukocyte Esterase Urine WBC Urine Bacteria Hyaline Casts Urine Mucus 10/22/23 05:19 WBC Neutrophils # D-Dimer Sodium 146 H Potassium Chloride 111 H BUN Creatinine Glucose POC Glucose (mg/dL) AST Creatine Kinase Urine Appearance Urine Protein Urine Ketones Urine Blood Ur Leukocyte Esterase Urine WBC Urine Bacteria Hyaline Casts Urine Mucus Assessment and Plan Assessment: This is a 58-year-old woman who presented to the emergency department because of sleepiness and had eventually syncopal episode that occurred this past Sunday. She stated that 2 days prior to that she had a headache over the frontal nasal region that was unbearable and that was evaluated and was told that she had an ear infection Syncopal episode: Unsure exact etiology. Possible acute urinary tract infection History of Graves' disease History of recent diagnosis of follicular cell lymphoma Diabetes borderline Hypertension Hyperlipidemia Plan: I ordered MRI of the brain with and without seizure protocol. Ordered MRA of the head. Seen EEG is ordered and is pending 2D echo is ordered and is pending Cardiology team is on board Will defer the rest of the medical management the primary and other specialist The plan is discussed with patient. Thank you for the consultation. Time with Patient: Greater than 30
--- NOTE | 2023-10-22 15:41 | CA ---
Stress Echo Report Sonya Jasso Age: 58 Gender: F : 1965 Exam Date: 10/22/2023 12:58 Exam Location: [place] [facility] Ht (in): 63 Wt (lb): 219 Ordering Physician: Filiberto Hi MD ([id number]) Referring Physician: LIZBET,, Trim Mounter: JO,, Technologist Procedure CPT: Indication: sob ICD-9 Codes: Rhythm: Patient History: HTN, HYPERCHOLESTEROLEMIA, ASTHMA Cardiac Medications: Medications in past 24 hours: Contrast: Stress Results Protocol: Ector Total dose(mL): Exercise Duration (min:sec): 7:[address] Depression (mm): Angina Score: Snell Score: METS: 8.0 Resting HR: 87 Resting BP: 125 / 71 Peak HR: 139 Peak BP: 189 / 82 Max Predicted HR: 160 87 % Max Predicted HR Target HR: 136 Double Product: [id number] Stress Summary: BP Response: Reason for Termination: MAX EXERTION/TARGET HR Cardiac Symptoms: FATIGUE ECG Analysis Resting ECG: Stress ECG: Arrhythmia: Echo Analysis Resting Echo: Peak Echo Analysis: MEASUREMENTS (Male/Female) Normal Values CONCLUSIONS Average exercise capacity, 7 minutes 15 seconds Peak heart rate 137 beats minute, normal blood pressure response She complained of shortness of breath and fatigue Abnormal EKG at baseline with [address] depression or T wave inversions No new EKG changes Excellent augmentation of overall LV contractility without development of any wall motion abnormalities Normal stress echo Dr. Carlos Pate MD (Electronically Signed) Final Date: 22 October 2023 15:40
[2023-10-22 16:39] LABS: Glucose,Whole Blood 108 mg/dL (70-110)
--- NOTE | 2023-10-22 17:48 | CA ---
Transthoracic Echo Report Name: Sonya Jasso Age: 58 Gender: F : 1965 Exam Date: 10/22/2023 13:23 Exam Location: [place] [facility] Ht (in): 63 Wt (lb): 217 Ordering Physician: Filiberto Hi MD ([id number]) Attending/Referring Phys: Steel Estimator Morena Bennett RDCS Procedure CPT: Indications: Syncope Cardiac Hx: Technical Quality: Good Contrast 1: Total Dose (mL): Contrast 2: Total Dose (mL): MEASUREMENTS (Male / Female) Normal Values 2D ECHO LV Diastolic Diameter PLAX 4.2 cm 4.2 - 5.9 / 3.9 - 5.3 cm LV Systolic Diameter PLAX 2.9 cm IVS Diastolic Thickness 0.9 cm 0.6 - 1.0 / 0.6 - 0.9 cm LVPW Diastolic Thickness 0.9 cm 0.6 - 1.0 / 0.6 - 0.9 cm LV Relative Wall Thickness 0.4 RV Internal Dim ED PLAX 2.9 cm LA Systolic Diameter LX 3.4 cm 3.0 - 4.0 / 2.7 - 3.8 cm LA Volume 34.8 cm??? 18 - 58 / 22 - 52 cm??? LA Volume Index 16.2 cm???/m??? 16 - 28 cm???/m??? M-MODE Aortic Root Diameter MM 3.1 cm AV Cusp Separation MM 1.8 cm DOPPLER AV Peak Velocity 187.0 cm/s AV Peak Gradient 14.0 mmHg AV Mean Velocity 131.9 cm/s AV Mean Gradient 7.6 mmHg AV Velocity Time Integral 34.1 cm AI Peak Velocity 437.5 cm/s AI Peak Gradient 76.6 mmHg AI Pressure Half Time 832.1 ms MV Area PHT 3.2 cm??? Mitral E Point Velocity 83.6 cm/s Mitral A Point Velocity 89.6 cm/s Mitral E to A Ratio 0.9 MV Deceleration Time 234.2 ms TR Peak Velocity 225.7 cm/s TR Peak Gradient 20.4 mmHg Right Ventricular Systolic Press 25.4 mmHg FINDINGS Left Ventricle Left ventricular ejection fraction is estimated at 60-65 %. Left ventricular wall thickness normal. Left ventricular cavity size normal. Normal left ventricular wall motion. Right Ventricle Normal right ventricular size and function. Right ventricular systolic pressure within normal limits. Right Atrium Normal right atrial size. No right atrial thrombus or mass seen. Left Atrium Normal left atrial size. No left atrial thrombus or mass present. Mitral Valve Structurally normal mitral valve. Trace mitral regurgitation. Aortic Valve Trileaflet aortic valve. No aortic stenosis. Mild aortic regurgitation. Tricuspid Valve Structurally normal tricuspid valve. Mild tricuspid regurgitation. Pulmonic Valve Structurally normal pulmonic valve. No pulmonic regurgitation. Pericardium No pericardial effusion. No pleural effusion. Aorta Normal size aortic root and proximal ascending aorta. CONCLUSIONS Normal LV size and function Previewed by: Dr. Carlos Pate MD (Electronically Signed) Final Date: 22 October 2023 17:47
[2023-10-22 20:44] LABS: Glucose,Whole Blood 102 mg/dL (70-110)
[2023-10-22] MEDS: amLODIPine 5 MG TAB PO SCH (21:06)
[2023-10-22] MEDS: EZETIMIBE 10 MG TAB PO SCH (21:07)
--- NOTE | 2023-10-22 23:36 | P.PN ---
Subjective Progress Note Date: 10/22/23 HISTORY OF PRESENT ILLNESS: 58-year-old with active medical history of lymphoma, type 2 diabetes, asthma, hypertension, hyperlipidemia, valvular heart disease, chronic kidney disease, hypothyroidism, chronic lower back pain and chronic arthritis who was hospitalized on late night 10/20/2023 because of possible syncope she was with her grandson came out of a parking her car sitting down when family member noted that she was sleeping more than usual Found herself on the ground with family trying to do CPR she woke up within couple minutes she had no seizure activity did not lose control of her urine or bowel did not bit her tongue has been complaining lately of being tired with fatigue also has been complaining with decreased frequency of urination occasional right sided flank pain when try to void which reminded her of her old kidney stone. She declined any chest pain or angina no shortness of breath no sign and symptom of CVA slurred speech blurred vision weakness or numbness. She ended up coming to the emergency department by EMS Was seen and evaluated, white blood cell was slightly below electrolyte with mildly low potassium, troponin was normal and negative. CT of the brain shows no acute change or abnormality, CTA shows no evidence of acute pulmonary embolism no aortic dissection. She was seen cardiology in consultation recommend to watch her orthostatic change, monitor for any arrhythmia recommend echo. Patient lab value came back with s light UTI culture still pending also surprisingly she had mildly elevated CK at 608 with no reason for rhabdomyolysis with the only exception this is reaction to statin. REVIEW OF SYSTEMS: CONSTITUTIONAL: Well-developed no acute respiratory distress. EYES: No icterus sclerae, no conjunctivitis. EARS, NOSE, MOUTH, THROAT, and FACE: No sore throat, lymphadenopathy, carotid bruits or deformity. RESPIRATORY: No SOB cough or wheezes. CARDIOVASCULAR: No CP, Palpitation, PND, Orthopnea, or angina. GASTROINTESTINAL: No Abd pain, Nausea or vomiting, no Diarrhea or constipation, No GI Bleed, no distention or masses. GENITOURINARY: Negative for Hematuria or UTI, no kidney stones. INTEGUMENT/BREAST: Negative for any muscular injury with mild osteoarthritis.. HEMATOLOGIC/LYMPHATIC: Negative for bleed or purpura. MUSCULOSKELTAL: Negative for Myalgia or arthralgia. NEURLOGICAL: No LOC, Sz or syncope, blurred vision dizziness or abnormality.. BEHAVIORAL/PSYCH: Negative. ENDOCRINE: Negative. PHYSICAL EXAMINATION: General Appearance: Alert, cooperative, no distress, appears stated age. Neck HEENT: Supple, no lymphadenopathy, no thyroid enlargement, no carotid bruits. Lungs: Clear to auscultation without crackles or wheezes no rhonchi, no deformity. Chest Wall: Chest wall normal expansion with deep inspiration no tenderness and no deformity was found on exam, no costochondral pain or discomfort. Heart: PMI is in the fifth costal space, regular rhythm and rate S1-S2 positive S3 positive slight murmur in the apex radiating toward the left upper. Back: Symmetric, no curvature, ROM normal, no CVA tenderness. Abdomen: Soft, non-tender, bowel sounds active all four quadrants, no masses, no organomegaly. Extremities: Extremities normal, atraumatic, no cyanosis or edema. Pulses: 2+ and symmetric. Skin: Skin color, texture, tugor normal, no rashes or lesions. Neurologic: Alert oriented x3 cranial nerves II through XII intact, no motor deficit, no abnormal balance or gait. ASSESSMENT AND PLAN: _Syncope: Laboratory etiology, watch for any orthostatic change, EEG, echo and other testing to be done also consult neurology. Continue gentle hydration, continue to watch for any hypotension waiting for neuroconsult along with results of her echo. _ ?? Sz: Neuro consult and EEG will be done. _Mild metabolic encephalopathy: Could be reactive to UTI could be something else will watch symptoms closely. _Urinary tract infection: Started on Rocephin 1 g daily continue medication till the final culture is back. _Valvular heart disease: Still seeing cardiology echocardiogram will be done. _Type 2 diabetes: Has not been on any medication will benefit from SGLT2 product specially with her valvular heart disease continue Accu-Chek with sliding scale coverage for now. _Hypertension: Remain on amlodipine 5 mg a day and lisinopril 20 mg twice daily continue medication. _Hyperlipidemia, remain on Zetia 10 mg a day and Crestor 40 mg daily. _Mild myalgia and possible rhabdo from statin with slightly elevated CK, might reduce the dose of her rosuvastatin from 40-20. _Asthma: Continue Ventolin HFA. _GERD/GI prophylaxis: Continue patient on pantoprazole. CODE STATUS: Full code. Objective - Vital Signs Vital signs: Vital Signs Temp 98.4 F 10/22/23 00:51 Pulse 70 10/22/23 00:51 Resp 16 10/22/23 00:51 BP 106/70 10/22/23 00:51 Pulse Ox 96 10/22/23 00:51 FiO2 Intake & Output 10/21/23 10/21/23 10/22/23 06:59 18:59 06:59 Intake Total 800 Balance 800 Weight 98.43 kg Intake: Intake, IV Titration 600 Amount Sodium Chloride 0.9% 1, 600 000 ml @ 50 mls/hr IV . Q20H [facility] Rx#:[id number] Oral 200 Other: # Voids 3 3 - Labs CBC & Chem 7: 10/21/23 03:16 10/21/23 03:16 Labs: Abnormal Lab Results - Last 24 Hours (Table) 10/21/23 Range/Units 20:22 POC Glucose (mg/dL) 137 H (70-110) mg/dL
[2023-10-23 05:52] LABS: Glucose,Whole Blood 86 mg/dL (70-110)
--- NOTE | 2023-10-23 06:18 | EEG ---
ELECTROENCEPHALOGRAM REPORT CLINICAL HISTORY: This is a 58-year-old woman, who had a syncopal episode. The video EEG is obtained to evaluate for seizure epileptiform activity. EEG TYPE: A routine 21-channel EEG with video using the 10/20 electrode placement system. RELEVANT MEDICATION: Xanax. DESCRIPTION: Wakefulness and drowsiness are obtained. During awake state, the posterior-dominant rhythm consists of low voltage of 9 hertz activity that is well modulated and well sustained. There is no physiological stage 2 sleep architecture. There is no focal slowing. Interictal and ictal is none. ACTIVATION PROCEDURE: Photic stimulation and hyperventilation are not performed. CLINICAL INTERPRETATION: This is a normal routine EEG. There is no focal slowing, epileptiform discharges, or seizure on the EEG. A normal routine EEG does not rule out underlying epilepsy. Clinical correlation is recommended. BARBRA / BLASN: [id number] /
[2023-10-23 08:42] LABS: HCT 36.9 % (37.2-46.3); MCH 29.7 pg (27.0-32.0); MCHC 32.5 g/dL (32.0-37.0); MCV 91.3 FL (80.0-97.0); Mean Platelet Volume 10.7 FL (9.5-12.2); NRBC Per 100 WBC 0 X 10*3/uL (0.00-0.01); Platelet Count 182 X 10*3/uL (140-440); RBC 4.04 X 10*6/uL (4.10-5.20); RDW 14.8 % (11.5-14.5); WBC 3.44 X 10*3/uL (4.50-10.00)
[2023-10-23 09:21] LABS: ALT 28 U/L (8-44); AST 42 U/L (13-35); Albumin 4.2 g/dL (3.8-4.9); Alkaline Phosphatase 62 U/L (41-126); BUN/Creat Ratio 6.33 Ratio (12.00-20.00); Blood Urea Nitrogen 5.7 mg/dL (9.0-27.0); Calcium 8.8 mg/dL (8.7-10.3); Carbon Dioxide 25.2 mmol/L (21.6-31.8); Chloride 108 mmol/L (96-109); Globulin 2.1 g/dL (1.6-3.3); Glucose 92 mg/dL (70-110); Potassium 3.8 mmol/L (3.5-5.5); Sodium 145 mmol/L (135-145); Total Bilirubin 0.4 mg/dL (0.3-1.2); Total Protein 6.3 g/dL (6.2-8.2)
[2023-10-23] MEDS: METOPROLOL SUCCINATE (ER) 25 MG TAB.ER.24H PO SCH (09:32)
[2023-10-23 11:43] LABS: Glucose,Whole Blood 96 mg/dL (70-110)
--- NOTE | 2023-10-23 15:11 | P.PN ---
Subjective Progress Note Date: 10/23/23 I am following up with the patient and patient does not have any further syncopal episode. Denies any further headache. She feels back to baseline. Objective - Vital Signs Vital signs: Vital Signs Temp 98.1 F 10/23/23 13:15 Pulse 76 10/23/23 13:15 Resp 17 10/23/23 13:15 BP 130/83 10/23/23 13:15 Pulse Ox 99 10/23/23 13:15 FiO2 Intake & Output 10/22/23 10/23/23 10/23/23 18:59 06:59 18:59 Intake Total 450 Balance 450 Intake: Intake, IV Titration 450 Amount Sodium Chloride 0.9% 1, 400 000 ml @ 50 mls/hr IV . Q20H [facility] Rx#:[id number] cefTRIAXone 1 gm In 50 Sodium Chloride 0.9% 50 ml @ 100 mls/hr IVPB Q24HR [facility] Rx#:[id number] Other: Voiding Method Toilet Toilet # Voids 3 - Exam GENERAL: The patient is lying in bed and is not in acute distress. NEUROLOGICAL: Higher mental function: The patient is awake, alert, oriented to self, place and time. Patient is following commands. No aphasia and no neglect. Cranial nerves: The pupils are round, equal and reactive to light and accommodation. Visual henderson are full to confrontation throughout. Extraocular movement is intact no nystagmus is noted. Facial sensation is normal to touch throughout. The facial strength is normal throughout. Hearing is normal bilaterally to hand rub. Tongue is midline and moved [id number] without any difficulty. No dysarthria is noted. Shoulder shrug is normal bilaterally. Motor: The strength is 5 over 5 throughout. Normal tone and bulk. Cerebellum: Normal finger to nose heel to bright bilaterally. Sensation: Sensation is normal to touch throughout. Reflexes (right/left): 2+ throughout. Plantars are downgoing bilaterally. Some of the workup during this hospital visit consisted of: CBC with differential on presentation is unremarkable Initial creatinine is 1.19 and has resolved. AST is 75 CK level 608 otherwise rest of the chemistry panel is unremarkable CT of the head is reported as no acute intracranial process. I personally reviewed the CT and agree with the report. Carotid Duplex is reported as less than 50% stenosis bilateral carotid bifurcation. Routine EEG: Normal. 2D echo: Normal left ventricle size and function. Stress Echo: Normal. - Labs CBC & Chem 7: 10/23/23 05:27 10/23/23 05:27 Labs: Abnormal Lab Results - Last 24 Hours (Table) 10/23/23 10/23/23 Range/Units 05:27 05:27 WBC 3.44 L (4.50-10.00) X 10*3/uL RBC 4.04 L (4.10-5.20) X 10*6/uL Hct 36.9 L (37.2-46.3) % RDW 14.8 H (11.5-14.5) % BUN 5.7 L (9.0-27.0) mg/dL BUN/Creatinine Ratio 6.33 L (12.00-20.00) Ratio AST 42 H (13-35) U/L Microbiology - Last 24 Hours (Table) 10/20/23 21:20 Blood Culture - Preliminary Blood 10/21/23 17:45 Urine Culture - Final Urine,Clean Catch Assessment and Plan Assessment: This is a 58-year-old woman who presented to the emergency department because of sleepiness and had eventually syncopal episode that occurred this past Sunday. She stated that 2 days prior to that she had a headache over the frontal nasal region that was unbearable and that was evaluated and was told that she had an ear infection Syncopal episode: Unsure exact etiology. Routine EEG is normal. Possible acute urinary tract infection History of Graves' disease History of recent diagnosis of follicular cell lymphoma Diabetes borderline Hypertension Hyperlipidemia Plan: Pending MRI of the brain with and without seizure protocol and MRA of the head. Cardiology team is on board Because of syncopal episode per [place] DM, to avoid driving for 6 months until no further episodes, avoid heights, avoid swimming unassisted or using heavy machinery. Will defer the rest of the medical management the primary and other specialist The plan is discussed with patient. Time with Patient: Less than 30
[2023-10-23 16:34] LABS: Glucose,Whole Blood 100 mg/dL (70-110)
[2023-10-23 20:56] LABS: Glucose,Whole Blood 98 mg/dL (70-110)
--- NOTE | 2023-10-24 05:37 | P.PN ---
Subjective Progress Note Date: 10/23/23 HISTORY OF PRESENT ILLNESS: 58-year-old with active medical history of lymphoma, type 2 diabetes, asthma, hypertension, hyperlipidemia, valvular heart disease, chronic kidney disease, hypothyroidism, chronic lower back pain and chronic arthritis who was hospitalized on late night 10/20/2023 because of possible syncope she was with her grandson came out of a parking her car sitting down when family member noted that she was sleeping more than usual Found herself on the ground with family trying to do CPR she woke up within couple minutes she had no seizure activity did not lose control of her urine or bowel did not bit her tongue has been complaining lately of being tired with fatigue also has been complaining with decreased frequency of urination occasional right sided flank pain when try to void which reminded her of her old kidney stone. She declined any chest pain or angina no shortness of breath no sign and symptom of CVA slurred speech blurred vision weakness or numbness. She ended up coming to the emergency department by EMS Was seen and evaluated, white blood cell was slightly below electrolyte with mildly low potassium, troponin was normal and negative. CT of the brain shows no acute change or abnormality, CTA shows no evidence of acute pulmonary embolism no aortic dissection. She was seen cardiology in consultation recommend to watch her orthostatic change, monitor for any arrhythmia recommend echo. Patient lab value came back with s light UTI culture still pending also surprisingly she had mildly elevated CK at 608 with no reason for rhabdomyolysis with the only exception this is reaction to statin. 10/23/2023 cardiology seen patient ordered 2D echo still waiting for the final result open no cardiac arrhythmia found as significant require any intervention or any procedure at this point. Also patient seen neurology ordered an MRI of the brain with and without seizure protocol with MRI of the head EEG still pending complete hopefully the evaluation and assessment patient will be ready for discharge when are done, still waiting for the final culture from urine but continue current antibiotic with Rocephin can be switched to cefuroxime as an outpatient. If end up completing testing by today should be able to discharge patient home, review of EEG from late yesterday shows no focal slowing or epile ptic discharges or seizure on EEG with quite normal EEG. Echocardiogram came back with normal ejection fraction 60-65 percentile with no left ventricular wall motion abnormality structure of the valve pericardium seems to be quite normal. Titrate activity and mobility probably prepare for home sometimes today. REVIEW OF SYSTEMS: CONSTITUTIONAL: Well-developed no acute respiratory distress. EYES: No icterus sclerae, no conjunctivitis. EARS, NOSE, MOUTH, THROAT, and FACE: No sore throat, lymphadenopathy, carotid bruits or deformity. RESPIRATORY: No SOB cough or wheezes. CARDIOVASCULAR: No CP, Palpitation, PND, Orthopnea, or angina. GASTROINTESTINAL: No Abd pain, Nausea or vomiting, no Diarrhea or constipation, No GI Bleed, no distention or masses. GENITOURINARY: Negative for Hematuria or UTI, no kidney stones. INTEGUMENT/BREAST: Negative for any muscular injury with mild osteoarthritis.. HEMATOLOGIC/LYMPHATIC: Negative for bleed or purpura. MUSCULOSKELTAL: Negative for Myalgia or arthralgia. NEURLOGICAL: No LOC, Sz or syncope, blurred vision dizziness or abnormality.. BEHAVIORAL/PSYCH: Negative. ENDOCRINE: Negative. PHYSICAL EXAMINATION: General Appearance: Alert, cooperative, no distress, appears stated age. Neck HEENT: Supple, no lymphadenopathy, no thyroid enlargement, no carotid bruits. Lungs: Clear to auscultation without crackles or wheezes no rhonchi, no deformity. Chest Wall: Chest wall normal expansion with deep inspiration no tenderness and no deformity was found on exam, no costochondral pain or discomfort. Heart: PMI is in the fifth costal space, regular rhythm and rate S1-S2 positive S3 positive slight murmur in the apex radiating toward the left upper. Back: Symmetric, no curvature, ROM normal, no CVA tenderness. Abdomen: Soft, non-tender, bowel sounds active all four quadrants, no masses, no organomegaly. Extremities: Extremities normal, atraumatic, no cyanosis or edema. Pulses: 2+ and symmetric. Skin: Skin color, texture, tugor normal, no rashes or lesions. Neurologic: Alert oriented x3 cranial nerves II through XII intact, no motor deficit, no abnormal balance or gait. ASSESSMENT AND PLAN: _Syncope: So far all testing are negative echo and EEG are completed does not show any major abnormality, waiting for MRI and MRA ordered by neurology which hopefully will be done sometimes today. _ ?? Sz: No seizure activity was found on EEG. _Mild metabolic encephalopathy: Only finding conclusion for metabolic encephalopathy is probably UTI continue current antibiotic management. _Urinary tract infection: Started on Rocephin 1 g daily continue medication till the final culture is back. Will switch patient to oral antibiotic before discharge. _Valvular heart disease: Her echo shows very good and normal ejection fraction without any major abnormality of valvular heart disease. _Type 2 diabetes: Has not been on any medication will benefit from SGLT2 product specially with her valvular heart disease continue Accu-Chek with sliding scale coverage for now. _Hypertension: Remain on amlodipine 5 mg a day and lisinopril 20 mg twice daily continue medication. _Hyperlipidemia, remain on Zetia 10 mg a day and Crestor 40 mg daily. _Mild myalgia and possible rhabdo from statin with slightly elevated CK, might reduce the dose of her rosuvastatin from 40-20. _Asthma: Continue Ventolin HFA. Discussion: Testing are looking almost complete, still waiting for the final urine culture, MRI with MRI of the brain is pending continue current management for now possible discharge later on today. Objective - Vital Signs Vital signs: Vital Signs Temp 97.9 F 10/23/23 02:00 Pulse 78 10/23/23 02:00 Resp 16 10/23/23 02:00 BP 112/70 10/23/23 02:00 Pulse Ox 97 10/23/23 02:00 FiO2 Intake & Output 10/22/23 10/22/23 10/23/23 06:59 18:59 06:59 Intake Total 800 450 Balance 800 450 Intake: Intake, IV Titration 600 450 Amount Sodium Chloride 0.9% 1, 600 400 000 ml @ 50 mls/hr IV . Q20H MISTY Rx#:[id number] cefTRIAXone 1 gm In 50 Sodium Chloride 0.9% 50 ml @ 100 mls/hr IVPB Q24HR MISTY Rx#:[id number] Oral 200 Other: Voiding Method Toilet # Voids 3 - Labs CBC & Chem 7: 10/21/23 03:16 10/22/23 05:19 Labs: Abnormal Lab Results - Last 24 Hours (Table) 10/22/23 Range/Units 05:19 Sodium 146 H (135-145) mmol/L Chloride 111 H (96-109) mmol/L Microbiology - Last 24 Hours (Table) 10/21/23 17:45 Urine Culture - Final Urine,Clean Catch 10/20/23 21:20 Blood Culture - Preliminary Blood
[2023-10-24 06:11] LABS: Glucose,Whole Blood 92 mg/dL (70-110)
--- NOTE | 2023-10-24 11:05 | MR ---
EXAMINATION TYPE: MR angio head wo con DATE OF EXAM: 10/24/2023 10:53 AM CLINICAL INDICATION:Female, 58 years old with history of headache; PHH, Seizure, headache, small inte ela lymphoma. COMPARISON: Same day brain Technical: 3-D [id number] Axial with MIP reconstruction created on a separate workstation.. IV Contrast: None cc Findings: Vertebral arteries: The vertebral arteries are patent. Vertebral arteries are: Codominant. Basilar artery: The basilar artery is intact. The basilar artery bifurcation is normal. Internal Carotid arteries: The cervical, petrous, cavernous and supraclinoid segments are normal. TOMEKA: Patent with no evidence of aneurysm. ACOM: Present without evidence of aneurysm. MCA: Patent with no evidence of aneurysm. 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 PCOM: Hypoplastic bilaterally. IMPRESSION: No evidence of aneurysm or significant stenosis.
--- NOTE | 2023-10-24 11:06 | MR ---
EXAMINATION TYPE: MR brain wo/w con DATE OF EXAM: 10/24/2023 10:54 AM CLINICAL INDICATION:Female, 58 years old with history of seizure; PHH, Seizure, headache, small intes demond lymphoma. COMPARISON: 10/20/2023 TECHNIQUE: Multi planar, multi sequence imaging was performed through the brain including: T1, T2, In version recovery, susceptibility weighted imaging and gradient echo imaging and Diffusion weighted im aging. The patient was then given intravenous contrast and multi planar, T1 fat-saturation images wer e obtained. IV Contrast: 9 cc Gadavist FINDINGS: The ng-white junctions, ventricular system, basal cisterns appear unremarkable. Diffusion-weighted imaging shows no evidence of restricted diffusion to suggest acute/subacute infarct. Intracranial ar terial flow voids are maintained. Midline structures show no abnormality. Scattered foci of high T2 s ignal intensity are seen within the periventricular white matter. The susceptibility weighted images do not reveal any evidence for micro-hemorrhage. After administration of gadolinium, no abnormal enha ncement is seen. The bone marrow signal is within normal limits. Paranasal sinuses and mastoid air cells: No significant paranasal sinus disease. Visualized orbits: Orbital contents are intact. IMPRESSION: 1. No evidence of intracranial mass, acute/subacute infarct, or abnormal enhancement. 2. Nonspecific white matter changes, likely related to small vessel ischemic disease.
[2023-10-24 11:10] LABS: Glucose,Whole Blood 114 mg/dL (70-110)
[2023-10-24 16:07] LABS: Glucose,Whole Blood 92 mg/dL (70-110)
[2023-10-24 17:09] VITALS: BP 101/70; PULSE 74; RESP 15; TEMP 98.4
--- NOTE | 2023-10-24 18:24 | P.PN ---
Subjective Progress Note Date: 10/24/23 I am following up with the patient and patient she continues to feels she is back to baseline. No further syncopal episodes. Denies any further headache. Objective - Vital Signs Vital signs: Vital Signs Temp 98.4 F 10/24/23 13:09 Pulse 74 10/24/23 13:09 Resp 15 10/24/23 13:09 BP 101/70 10/24/23 13:09 Pulse Ox 96 10/24/23 13:09 FiO2 Intake & Output 10/23/23 10/24/23 10/24/23 18:59 06:59 18:59 Other: Voiding Method Toilet Toilet Toilet # Voids 5 1 - Exam GENERAL: The patient is lying in bed and is not in acute distress. NEUROLOGICAL: Higher mental function: The patient is awake, alert, oriented to self, place and time. Patient is following commands. No aphasia and no neglect. Cranial nerves: The pupils are round, equal and reactive to light and accommodation. Visual henderson are full to confrontation throughout. Extraocular movement is intact no nystagmus is noted. Facial sensation is normal to touch throughout. The facial strength is normal throughout. Hearing is normal bilaterally to hand rub. Tongue is midline and moved [id number] without any difficulty. No dysarthria is noted. Shoulder shrug is normal bilaterally. Motor: The strength is 5 over 5 throughout. Normal tone and bulk. Cerebellum: Normal finger to nose heel to bright bilaterally. Sensation: Sensation is normal to touch throughout. Reflexes (right/left): 2+ throughout. Plantars are downgoing bilaterally. Some of the workup during this hospital visit consisted of: CBC with differential on presentation is unremarkable Initial creatinine is 1.19 and has resolved. AST is 75 CK level 608 otherwise rest of the chemistry panel is unremarkable CT of the head is reported as no acute intracranial process. I personally reviewed the CT and agree with the report. Carotid Duplex is reported as less than 50% stenosis bilateral carotid bifurcation. Routine EEG: Normal. 2D echo: Normal left ventricle size and function. Stress Echo: Normal. MRI of the brain is reported as no evidence of intracranial mass, acute/subacute infarct or abnormal enhancement. Nonspecific white matter changes likely related to small vessel ischemic disease. MRA of the head is reported as no evidence of aneurysm or significant stenosis. - Labs CBC & Chem 7: 10/23/23 05:27 10/23/23 05:27 Labs: Abnormal Lab Results - Last 24 Hours (Table) 10/24/23 Range/Units 11:07 POC Glucose (mg/dL) 114 H (70-110) mg/dL Microbiology - Last 24 Hours (Table) 10/20/23 21:20 Blood Culture - Preliminary Blood Assessment and Plan Assessment: This is a 58-year-old woman who presented to the emergency department because of sleepiness and had eventually syncopal episode that occurred this past Sunday. She stated that 2 days prior to that she had a headache over the frontal nasal region that was unbearable and that was evaluated and was told that she had an ear infection Syncopal episode: Unsure exact etiology. Routine EEG is normal. MRI of the brain is unremarkable for any acute or subacute process or any enhancement. MRA of the head is unremarkable Possible acute urinary tract infection History of Graves' disease History of recent diagnosis of follicular cell lymphoma Diabetes borderline Hypertension Hyperlipidemia Plan: Because of syncopal episode per [place] DMV, to avoid driving for 6 months until no further episodes, avoid heights, avoid swimming unassisted or using heavy machinery. Cardiology team is on board Recommend an event monitor for 30 days Also recommend a repeat EEG as an outpatient but that could be coordinated by her primary care physician or neurologist. Recommend that she follows up with a neurologist as an outpatient within 1 to 2 weeks. Will defer the rest of the medical management the primary and other specialist The plan is discussed with patient and her nurse. There is no further neurological work-up. Time with Patient: Less than 30
== END 2023-10-24 17:09 | disposition home or self-care (01) | DRG 463 ==
LOC: EC 16:12 → 3SCARD 21:13 → 5NMEDONC 22:35 → 4SSUR 10-21 01:55
PROVIDERS: ADMIT Internal Medicine Geriatric Medicine; ATTEND Internal Medicine Geriatric Medicine
PROC: 4A10X4Z Monitoring of Central Nervous Electrical Activity, External Approach (ICD-10-PCS; principal; 2023-10-22)
DX: N39.0 Urinary tract infection, site not specified (principal); G93.41 Metabolic encephalopathy; E78.5 Hyperlipidemia, unspecified; E03.9 Hypothyroidism, unspecified; I10 Essential (primary) hypertension; C85.90 Non-Hodgkin lymphoma, unspecified, unspecified site; E66.3 Overweight; Z68.38 Body mass index [BMI] 38.0-38.9, adult; R55 Syncope and collapse; G89.29 Other chronic pain; M54.50 Low back pain, unspecified; I08.3 Combined rheumatic disorders of mitral, aortic and tricuspid valves; E78.00 Pure hypercholesterolemia, unspecified; E05.00 Thyrotoxicosis with diffuse goiter without thyrotoxic crisis or storm; E11.9 Type 2 diabetes mellitus without complications; F41.9 Anxiety disorder, unspecified; J45.909 Unspecified asthma, uncomplicated; R32 Unspecified urinary incontinence; Z79.890 Hormone replacement therapy; Z79.899 Other long term (current) drug therapy; Z82.49 Family history of ischemic heart disease and other diseases of the circulatory system; Z87.442 Personal history of urinary calculi; Z90.710 Acquired absence of both cervix and uterus; Z98.51 Tubal ligation status; Z88.2 Allergy status to sulfonamides; Z88.1 Allergy status to other antibiotic agents
CPT/HCPCS: 36415; 70450; 70544; 70553; 71046; 71275; 80048; 80051; 80053; 81001; 82550; 83735; 84484; 85025; 85027; 85379; 85610; 85730; 87040; 87086; 93005; 93306; 93351; 93880; 94760; 95816; 96361; 96374; 99291

== ENCOUNTER 2023-11-13 07:30 | Day surgery (SDC) | payer OTHER ==
[2023-11-13] MEDS ORDERED: LACTATED RINGERS 1,000 ML BAG ONE (09:00)
[2023-11-13] MEDS ORDERED: LIDOCAINE 1% INJ 10MG/ML (20 ML MDV) ONE (10:00)
[2023-11-13] MEDS ORDERED: PROPOFOL 10 MG/ML 20 ML VIAL IV ONE (10:00)
--- NOTE | 2023-11-16 15:56 | PCN ---
PROCEDURE NOTE PREOPERATIVE DIAGNOSES: 1. Gastroesophageal reflux disease. 2. History of colon polyps. POSTOPERATIVE DIAGNOSES: 1. Duodenal lesion. 2. Gastritis. 3. Hiatal hernia. 4. Diverticulosis. PROCEDURES: 1. Esophagogastroduodenoscopy with biopsy. 2. Colonoscopy. ANESTHESIA: Sedation. COMPLICATIONS: None. OPERATIVE PROCEDURE: The patient was brought and placed on the operating table in a left decubitus position. The patient was sedated per Anesthesia at that time. The Olympus gastroscope was inserted into the oropharynx and passed under direct visualization to the 3rd portion of the duodenum. From that point, we slowly withdrew the scope and inspected all the surfaces carefully. In the 2nd portion of the duodenum, covering a span of approximately 4-6 cm in length and approximately one-fourth of the circumference of the wall of the duodenum, there was a sessile polypoid lesion. The patient has a history of previous duodenal lymphoma. Multiple biopsies were taken. The proximal duodenum appeared normal. The stomach was then inspected. There was mild gastritis present. Biopsies were taken. Retroflexion revealed a small sliding hiatal hernia. The patient's esophagus was examined and appeared normal. The Olympus colonoscope was inserted into the anus and passed under direct visualization to the base of the cecum. From that point, we slowly withdrew the scope, inspecting all the surfaces carefully. There were no neoplastic, inflammatory, or polypoid lesions seen through the cecum, ascending, transverse, descending, sigmoid, or rectum. There was mild diverticulosis. Digital rectal examination was normal. PLAN: 1. Await the results. 2. Plan repeat colonoscopy in 5-7 years. MMODL / IJN: [id number] /
== END 2023-11-13 11:38 ==
LOC: ORWHC2ENDO 07:30
PROVIDERS: ATTEND Surgery
DX: K29.50 Unspecified chronic gastritis without bleeding (principal); K21.9 Gastro-esophageal reflux disease without esophagitis; K31.7 Polyp of stomach and duodenum; K44.9 Diaphragmatic hernia without obstruction or gangrene; K57.30 Diverticulosis of large intestine without perforation or abscess without bleeding; I10 Essential (primary) hypertension; E78.5 Hyperlipidemia, unspecified; J45.909 Unspecified asthma, uncomplicated; E07.9 Disorder of thyroid, unspecified; Z86.010 Personal history of colon polyps; Z79.890 Hormone replacement therapy; Z79.02 Long term (current) use of antithrombotics/antiplatelets; Z79.899 Other long term (current) drug therapy; Z88.2 Allergy status to sulfonamides
CPT/HCPCS: 43239; 45378; 88305; 88341; 88342

== ENCOUNTER → 2024-01-29 | Outpatient (CLI) | payer OTHER ==
--- NOTE | 2024-01-29 14:28 | XR ---
EXAMINATION TYPE: XR knee limited RT DATE OF EXAM: 01/29/2024 COMPARISON: NONE CLINICAL INDICATION: Female, 58 years old with history of M25.562 PAIN IN LEFT KNEE; TECHNIQUE: Three views are submitted. FINDINGS: Mild to moderate medial and patellofemoral compartment joint narrowing. There appears to be a biparti te patella versus remote trauma. Favor bipartite patella. Enthesophyte along the anterior surface of the patella. No erosive changes. Osseous structures are intact. No acute fracture seen. IMPRESSION: 1. [id number] osteoarthritis. 2. Bipartite patella favored over remote trauma. Correlate clinically. [facility], , 01/29/2024 2:26 PM
== END | disposition home or self-care (01) ==
LOC: RADXRMAIN 13:26
PROVIDERS: ATTEND Internal Medicine Geriatric Medicine
DX: M17.11 Unilateral primary osteoarthritis, right knee (principal); Q74.1 Congenital malformation of knee

== ENCOUNTER → 2024-08-11 | Outpatient (CLI) | payer OTHER ==
[2024-08-11 18:06] LABS: HCT 42.1 % (37.2-46.3); HGB 13.5 g/dL (12.0-15.0); MCH 29.8 pg (27.0-32.0); MCHC 32.1 g/dL (32.0-37.0); MCV 92.9 FL (80.0-97.0); Mean Platelet Volume 9.9 FL (9.5-12.2); NRBC Per 100 WBC 0 X 10*3/uL (0.00-0.01); Platelet Count 285 X 10*3/uL (140-440); RBC 4.53 X 10*6/uL (4.10-5.20); RDW 14.9 % (11.5-14.5); WBC 7.81 X 10*3/uL (4.50-10.00)
[2024-08-11 18:16] LABS: Carbon Dioxide 24.9 mmol/L (21.6-31.8); Chloride 106 mmol/L (96-109); Potassium 4.2 mmol/L (3.5-5.5); Sodium 143 mmol/L (135-145)
== END | disposition home or self-care (01) ==
LOC: LABWHC1 13:26
PROVIDERS: ATTEND Internal Medicine Interventional Cardiology
DX: Z01.812 Encounter for preprocedural laboratory examination (principal); R06.02 Shortness of breath
CPT/HCPCS: 36415; 80051; 82565; 84520; 85027